=== PATIENT | female | born 1945 | race Caucasian/White ===

== ENCOUNTER 2022-12-23 08:46 | Day surgery (SDC) | payer MEDICARE, OTHER ==
[~2022-12-23] VITALS: Ht 154.9 cm; Wt 87.7 kg
[~2022-12-23 08:46] MED LIST: DIAZ5 PO; OXYACE5T PO
[2022-12-23] MEDS ORDERED: NAPROXEN500 MG PO (09:20)
[2022-12-23] MEDS ORDERED: ANORO ELLIPTA1 EAC1 INH (09:20)
[2022-12-23] MEDS ORDERED: Ventolin/Prove6.7 GM INH (09:20)
[2022-12-23] MEDS ORDERED: LISINOPRIL-HCT1 EAC1 PO (09:29)
[2022-12-23] MEDS ORDERED: TEMA30 (09:29)
[2022-12-23] MEDS ORDERED: ALPRAZOLAM110 (09:29)
--- NOTE | 2022-12-23 10:01 | NUR ---
12/23/22 1001 Beth [place] GIVEN PRE-OP PER VERBAL ORDER FROM DR ROSA
[2022-12-23 10:24] VITALS: BP 155/78
--- NOTE | 2022-12-23 10:33 | NUR ---
12/23/22 1033 Blaze Costa IV REMOVED INTACT. SITE WNL.
== END 2022-12-23 10:41 | disposition home or self-care (01) ==
LOC: ORSCSDS 08:46
PROVIDERS: Student in an Organized Health Care Education/Training Program
PROC: 08DK3ZZ Extraction of Left Lens, Percutaneous Approach (ICD-10-PCS; principal; 2022-12-23 10:00)
DX: H25.13 Age-related nuclear cataract, bilateral (principal); I10 Essential (primary) hypertension; E66.9 Obesity, unspecified; Z68.36 Body mass index [BMI] 36.0-36.9, adult; Z87.891 Personal history of nicotine dependence; Z79.899 Other long term (current) drug therapy
CPT/HCPCS: J2250; J3010; J7040; V2632

== ENCOUNTER 2024-05-16 17:01 | Inpatient (IN) | payer MEDICARE, OTHER ==
[~2024-05-16] VITALS: Ht 152.4 cm; Wt 81.2 kg
[~2024-05-16 17:01] MED LIST changes: +ALBU90OI INH; +ALPRAZOLAM110 PO; +ANORO ELLIPTA1 EAC1 INH; +LISINOPRIL-HCT1 EAC1 PO; +NAPROXEN500 MG PO; +TEMA30 PO
[2024-05-16 18:22] LABS: BASOPHILS ABSOLUTE AUTO 0.05 K/mm3 (0.00-0.23); BASOPHILS PERCENT AUTO 0 % (0-2); EOSINOPHILS ABSOLUTE AUTO 1.84 K/mm3 (0.00-0.68); EOSINOPHILS PERCENT AUTO 11 % (0-6); Hematocrit 46.4 % (33.0-51.0); Hemoglobin 14.2 g/dL (11.5-16.0); IMMATURE GRAN PERCENT AUTO 1 % (0-1); LYMPHOCYTES ABSOLUTE AUTO 0.72 K/mm3 (0.84-5.20); LYMPHOCYTES PERCENT AUTO 4 % (21-46); MONOCYTES ABSOLUTE AUTO 0.71 K/mm3 (0.16-1.47); MONOCYTES PERCENT AUTO 4 % (4-13); Mean Corpuscular HGB 28.4 pg (26.0-34.0); Mean Corpuscular HGB Conc 30.6 g/dL (31.5-36.5); Mean Corpuscular Volume 93 fL (80-100); Mean Platelet Volume 9.7 fL (9.1-12.4); NEUTROPHILS ABSOLUTE AUTO 13.34 K/mm3 (1.96-9.15); NEUTROPHILS PERCENT AUTO 80 % (41-73); Platelet Count 277 K/mm3 (150-400); RDW Coefficient Variation 14.6 % (11.7-14.2); RDW Standard Deviation 49.7 fL (35.1-46.3); White Blood Cell Count 16.76 K/mm3 (4.00-11.30)
[2024-05-16 18:52] LABS: Albumin, Blood 3.3 g/dL (3.4-5.0); Albumin/Globulin Ratio 0.8 (0.8-1.8); Bilirubin, Total 0.8 mg/dL (0.1-1.0); Bun/Creatinine Ratio 16.4 (12.0-20.0); Calcium, Blood 7.8 mg/dL (8.5-10.1); Creatinine, Blood 2.14 mg/dL (0.40-1.00); Globulin, Blood 4.3 g/dL (2.2-4.0); Potassium, Blood 5.7 mmol/L (3.5-5.5); Total Protein, Blood 7.6 g/dL (6.4-8.2)
[2024-05-16] MEDS ORDERED: Aspirin 81 MG Chew PO ONE (22:25)
[2024-05-16] MEDS ORDERED: Ondansetron HCl 2 MG / ML 2ML Vial IV PRN (23:35)
[2024-05-16] MEDS ORDERED: FLU VACC TS2024-25(6MOS UP)/PF 45 MCG/0.5 ML SYRINGE IM ONE (23:35)
[2024-05-16] MEDS ORDERED: NS 1,000 ML IV ONE (23:35)
[2024-05-17] MEDS ORDERED: Clopidogrel Bisulfate 75 MG Tab PO SCH
[2024-05-17] MEDS ORDERED: Insulin Glargine-Yfgn 100 Unit/mL 3 ML SYR SC SCH
[2024-05-17] MEDS ORDERED: Enoxaparin 40 MG/0.4 ML SYR SC SCH
[2024-05-17] MEDS ORDERED: Atorvastatin 40 MG Tab PO SCH
[2024-05-17] MEDS ORDERED: Enoxaparin 30 MG/0.3 ML SYR SC SCH (00:01)
[2024-05-17] MEDS ORDERED: Methocarbamol750 MG PO (00:17)
[2024-05-17 01:00] VITALS: BP 231/91
[2024-05-17] MEDS ORDERED: HydrALAZINE HCl 20 MG / ML 1ML Vial IV ONE (02:05)
[2024-05-17] MEDS ORDERED: ALPRAZolam 0.5 MG Tab PO PRN (02:05)
[2024-05-17] MEDS ORDERED: Temazepam 15 MG Cap PO SCH (02:10)
[2024-05-17] MEDS ORDERED: Albuterol HFA200 ACT/6.7 GM INH INH PRN (02:10)
[2024-05-17] MEDS ORDERED: Ipratropium/Albuterol SulF 2.5-0.5MG/3 ML Amp INH PRN (02:25)
[2024-05-17 03:19] VITALS: BP 156/90
[2024-05-17 04:07] LABS: Source, Urine Clean Catch
[2024-05-17 04:09] LABS: Bilirubin, Urine Neg (Neg); Blood, Urine 1+ (Neg); Glucose Qualitative, Urine Neg (Neg); Ketones, Urine Neg (Neg); Leukocyte Esterase, Urine 2+ (Neg); Nitrite, Urine Neg (Neg); Protein, Urine 2+ (Neg); Specific Gravity, Urine 1.005 (1.003-1.022); Urobilinogen, Urine NORM (Normal)
--- NOTE | 2024-05-17 04:17 | NUR ---
0100 PT ARRIVED TO ROOM FROM ER IN STABLE CONDITION. PT REPORTS SOB THAT INCREASES WITH EXERTION, ON 2L NC O2 AT 91%. BP ELEVATED AT 231/91, WILL CALL DR TO GET MEDS. BS WAS 158. PVR BLADDER SCAN WAS 32 ML.TELE NSR AT 78. NO OTHER APPARENT SIGNS OF DISTRESS. CALL LIGHT IS IN REACH. BED ALARM IS ON.
--- NOTE | 2024-05-17 04:20 | NUR ---
0319 GAVE PT HYDRALAZINE AT 0238, PT'S BP IS NOW 156/90. PT LYING IN BED, AWAKE, NO APPARENT SIGNS OF DISTRESS. CALL LIGHT IS IN REACH. BED ALARM IS ON.
[2024-05-17 04:22] LABS: Appearance, Urine Clear (Clear); Bacteria Mod /hpf; Color, Urine Pale Yellow (P-Yellow); Red Blood Cells, Urine 0-2 /hpf (0-2); Squamous Epithelial Cells Rare /hpf (Few)
--- NOTE | 2024-05-17 04:24 | NUR ---
PT IS AAO X 4, ON 2L NC. SOB THAT INCREASES WITH EXERTION. BP WAS ELEVATED ON ARRIVAL TO FLOOR AT 231/91, GOT HYDRALAZINE X 1, CAME DOWN TO 156/90. TELE NSR TO ST 95-100. BS WAS 158. PVR BLADDER SCAN WAS 32.
[2024-05-17 04:53] LABS: BASOPHILS ABSOLUTE AUTO 0.06 K/mm3 (0.00-0.23); BASOPHILS PERCENT AUTO 0 % (0-2); EOSINOPHILS ABSOLUTE AUTO 3.48 K/mm3 (0.00-0.68); EOSINOPHILS PERCENT AUTO 25 % (0-6); Hematocrit 42.6 % (33.0-51.0); Hemoglobin 13.4 g/dL (11.5-16.0); IMMATURE GRAN ABSOLUTE AUTO 0.07 K/mm3 (0.00-0.10); IMMATURE GRAN PERCENT AUTO 1 % (0-1); LYMPHOCYTES PERCENT AUTO 14 % (21-46); MONOCYTES ABSOLUTE AUTO 0.66 K/mm3 (0.16-1.47); MONOCYTES PERCENT AUTO 5 % (4-13); Mean Corpuscular HGB 28.5 pg (26.0-34.0); Mean Corpuscular HGB Conc 31.5 g/dL (31.5-36.5); Mean Corpuscular Volume 90 fL (80-100); Mean Platelet Volume 9.4 fL (9.1-12.4); NEUTROPHILS ABSOLUTE AUTO 7.87 K/mm3 (1.96-9.15); NEUTROPHILS PERCENT AUTO 56 % (41-73); Platelet Count 281 K/mm3 (150-400); RDW Coefficient Variation 14.5 % (11.7-14.2); RDW Standard Deviation 48.8 fL (35.1-46.3); Red Blood Cell Count 4.71 M/mm3 (3.80-5.20); White Blood Cell Count 14.04 K/mm3 (4.00-11.30)
[2024-05-17 05:22] LABS: Albumin/Globulin Ratio 0.8 (0.8-1.8); Bilirubin, Total 0.6 mg/dL (0.1-1.0); Bun/Creatinine Ratio 15.4 (12.0-20.0); Calcium, Blood 7.9 mg/dL (8.5-10.1); Creatinine, Blood 2.01 mg/dL (0.40-1.00); Globulin, Blood 3.8 g/dL (2.2-4.0); Potassium, Blood 4.4 mmol/L (3.5-5.5); Total Protein, Blood 6.8 g/dL (6.4-8.2)
[2024-05-17] MEDS ORDERED: FentaNYL Citrate 50 MCG/ML 2 ML Injection IV PRN (06:15)
[2024-05-17] MEDS ORDERED: TRELEGY ELLIPT1 EACH INH (06:53)
[2024-05-17 07:26] VITALS: BP 161/97
[2024-05-17] MEDS ORDERED: Insulin Human Lispro 100 Units/ML 3ML Syringe SC SCH (07:30)
[2024-05-17] MEDS ORDERED: Tiotropium Bromide 2.5 MCG/ACT MIST INHAL (10 ACT/4 GM) INH SCH (07:50)
[2024-05-17] MEDS ORDERED: Mometasone/Formoterol MDI 100/5 mcg 13 GM INH SCH (07:50)
[2024-05-17] MEDS ORDERED: Aspirin 81 MG Chew PO SCH (09:00)
[2024-05-17] MEDS ORDERED: HydrALAZINE HCl 25 MG Tab PO SCH (09:00)
[2024-05-17 15:11] VITALS: BP 161/67
--- NOTE | 2024-05-17 16:36 | NUR ---
SHIFT SUMMARY; PER PATIENT IS POSITIVE FOR ISHEMIC STROKE ABOUT 5CM. SHE STILL HAS BLURRY VISION. DENIES ANY CP OR PRESSURE. DOES SAY HAS A MILD HEADACHE. ORDER FOR CT WITH CONTRAST NOT DONE OF THIS WRITING. PATIENT HAS GOOD IV 20GAUGE LEFT WRIST. VERIFIED WITH CHEESE SPECIALIST MARCELA THEY CAN USE IT FOR CONTRAST. VITAL SIGNS SHOW SHE IS HYPERTENSIVE THROUGHOUT DAY. PO HYDRALAZINE ADMIN ORDERED WITH MINIMAL RESULTS. SHE IS AO X 4. REMAINS ON 2 LITERS O2 FOR COMFORT. PER PATIENT SHE HAS AN EMIGEN CONCENTRATOR AT HOME THAT SHE USES FOR SOB NEEDED. PATIENT LIVES ALONE AND SAYS SHE DOES HAVE FRIENDS SHE CAN COUNT ON TO COME ASSIST HER WHEN SHE IS DISCHARGED. WILL REMAIN AVAILABLE FOR THIS PATIENT FOR ANY WANTS OR NEEDS THAT COME UP PRIOR TO REPORT AND HAND OFF TO NOC SHIFT RN.
[2024-05-17 19:35] VITALS: BP 199/80
[2024-05-18 04:11] VITALS: BP 184/99
[2024-05-18 04:53] LABS: Hematocrit 44.5 % (33.0-51.0); Hemoglobin 13.8 g/dL (11.5-16.0); Mean Corpuscular HGB 28.4 pg (26.0-34.0); Mean Corpuscular Volume 92 fL (80-100); Mean Platelet Volume 9.7 fL (9.1-12.4); Platelet Count 322 K/mm3 (150-400); RDW Coefficient Variation 14.6 % (11.7-14.2); RDW Standard Deviation 49.7 fL (35.1-46.3); Red Blood Cell Count 4.86 M/mm3 (3.80-5.20); White Blood Cell Count 14.44 K/mm3 (4.00-11.30)
[2024-05-18 05:24] LABS: Anion Gap 11 mmol/L (3-11); Blood Urea Nitrogen 29 mg/dL (8-24); Bun/Creatinine Ratio 14.4 (12.0-20.0); CHOL/HDL RATIO 3.1; CO2, Blood 22 mmol/L (21-32); Calcium, Blood 8.6 mg/dL (8.5-10.1); Chloride, Blood 112 mmol/L (98-108); Cholesterol 148 mg/dL (50-200); Creatinine, Blood 2.02 mg/dL (0.40-1.00); Glomerular Filtration Rate 24 (60-); Glucose, Blood 139 mg/dL (70-99); HDL Cholesterol 48 mg/dL (>39); LDL/HDL RATIO 1.6; Low Density Lipoprotein Chol 75 mg/dL (0-110); Potassium, Blood 4.9 mmol/L (3.5-5.5); Sodium, Blood 140 mmol/L (136-145); Triglycerides 126 mg/dL (30-160); Very Low Density Lipoprot Chol 25 mg/dL (6-32)
[2024-05-18 07:19] VITALS: BP 216/83
--- NOTE | 2024-05-18 07:40 | NUR ---
SHIFT SUMMARY PATIENT UP TO BR OFTEN TONIGHT. MEDICATED TWICE FOR ANXIETY. VISION IS STILL OFF. TELE SR @ 89 BP ELEVATED AT TIMES.
--- NOTE | 2024-05-18 07:46 | NUR ---
SBP >[address] GUPTA NOTIFIED VIA TELEPHONE AND ORDER TO GIVE SCHEDULED HYDRALAZINE NOW. STATED WILL ORDER PRN FOR BLOOD PRESSURE. WILL CONTINUE TO MONITOR.
[2024-05-18] MEDS ORDERED: AmLODIPine Besylate 5 MG Tab PO SCH (08:00)
[2024-05-18] MEDS ORDERED: Carvedilol 6.25 MG Tab PO SCH (08:00)
[2024-05-18 08:33] VITALS: BP 157/71
[2024-05-18] MEDS ORDERED: Loratadine 10 MG Tab PO SCH (14:00)
[2024-05-18 16:10] VITALS: BP 184/79
[2024-05-18 17:29] VITALS: BP 153/70
--- NOTE | 2024-05-18 18:02 | NUR ---
DISCHARGE NOTE PATIENT A/OX4, ABLE TO MAKE NEEDS KNOWN. PLEASANT AND COOPERATIVE WITH CARE. PATIENT'S LEFT PUPIL NOT REACTIVE TO LIGHT THIS AM, RIGHT PUPIL SLUGGISH. PATIENT COMPLAINING OF SKEWED VISION AND HAVING VISUAL DISTURBANCES. STATES OBJECTS "MOVE AND GET LARGER AND SMALLER". PATIENT BLOOD RPESSURE ELEVATED THIS AM, NOTIFIED AND ORDERED NEW SCHEDULED MEDICATIONS. PIV DRESSING CHANGED. PATIENT HAD A SHOWER AND ALSO PARTICIPATED IN PHYSICAL THERAPY. TELEMETRY IN PLACE, NO EVENTS NOTED. NO OTHER CONCERNS AT THIS TIME, FRIENDS AT BEDSIDE.
[2024-05-18 20:26] VITALS: BP 145/66
[2024-05-19 02:18] VITALS: BP 170/61
[2024-05-19] MEDS ORDERED: Acetaminophen 325 MG TABLET PO PRN (02:35)
--- NOTE | 2024-05-19 04:43 | NUR ---
SHIFT SUMMARY PATIENT FEELS THAT HER EYESIGHT IN BOTH EYES HAS RETURNED. STILL CLUMSY WHEN HANDED THE REMOTE, BUT SEEMS ABLE TO FOCUS BETTER.
[2024-05-19 07:26] VITALS: BP 182/69
[2024-05-19] MEDS ORDERED: Aspirin 81 MG Chew PO SCH (09:00)
[2024-05-19] MEDS ORDERED: Atorvastatin 40 MG Tab PO SCH (09:00)
[2024-05-19] MEDS ORDERED: Clopidogrel Bisulfate 75 MG Tab PO SCH (09:00)
--- NOTE | 2024-05-19 12:47 | NUR ---
THIS MOTION DESIGNER HAS REVIEWED AND AGREES WITH ALL ASSESSMENTS BY CLARKE GARZA.
[2024-05-19 15:17] VITALS: BP 161/80
--- NOTE | 2024-05-19 18:28 | NUR ---
SHIFT SUMMARY: PT AOX4 STILL SOME BLURRY VISION. PT AND OT SAW HER WITH PROMISING RESULTS. PT ABLE TO AMBULATE WITH WALKER NEEDING ONLY MODERATE DIRECTION IN ORDER TO REACH DESTINATION. HAD SOME HEAD ACHE AND BACK PAIN, MEDICATED PER EMR AND ADJUSTED IN BED. PT VERY COOPERATIVE AND EAGER TO LEARN AND GET BETTER. BLOOD SUGARS STABLE INSULIN NOT INDICATED. BLOOD PRESSURE STABLE AND HELD WITH MEDICATIONS PER EMR. PT CURRENTLY SLEEPING IN BED, BED IN LOWEST POSITION, CALL LIGHT IN REACH. CONTINUING CARE.
[2024-05-19 19:42] VITALS: BP 140/62
[2024-05-20 05:01] VITALS: BP 163/64
--- NOTE | 2024-05-20 05:05 | NUR ---
SHIFT SUMMARY PATIENT IS ALERT AND ORIENTED X3. PATIENT HAS HAD NO ACUTE EVENTS THIS SHIFT. VITAL SIGNS REVIEWED. PATIENT HAS HAD NO COMPLAINTS OF PAIN, NAUSEA, SOB OR VOMITTING. PATIENT IS STILL ON 2L NC. BED IN LOCKED AND LOWEST POSITION. CALL LIGHT IN PLACE. WILL MONITOR UNTIL SHIFT CHANGE.
[2024-05-20 07:35] VITALS: BP 179/70
[2024-05-20 10:39] LABS: Influenza A, PCR NEGATIVE (NEGATIVE); Influenza B, PCR NEGATIVE (NEGATIVE); Resp Syncytial Virus, PCR NEGATIVE (NEGATIVE); SARS-Cov-2 (COVID-19) PCR, MMC NEGATIVE (NEGATIVE)
[2024-05-20] MEDS ORDERED: ASPI81CH PO (11:33)
[2024-05-20] MEDS ORDERED: AMLO5 PO (11:33)
[2024-05-20] MEDS ORDERED: ATOR40TA PO (11:34)
[2024-05-20] MEDS ORDERED: CARV6.25 PO (11:34)
[2024-05-20] MEDS ORDERED: CLOP75 PO (11:34)
[2024-05-20] MEDS ORDERED: HYDR10 PO (11:34)
[2024-05-20] MEDS ORDERED: ZYRTEC10 M2 PO (11:35)
[2024-05-20] MEDS ORDERED: SEMGLEE (Y100 UNIT/2 SC (11:35)
[2024-05-20 13:30] VITALS: BP 174/70
--- NOTE | 2024-05-20 14:16 | NUR ---
DISCHARGE SUMMARY PT DC THIS SHIFT TO DUSTIN CLARKE VIA TRANSPORTATION SERVICES. HARD SCRIPT NOTED TO BE INTRANSPORT PACKET. TRIED TO CALL AND GIVE REPORT TO DUSTIN CLARKE X2 THIS SHIFT WITH NO ANSWER. PT LEFT WITH BELONGINGS AND ON 2L/NC.
== END 2024-05-20 14:18 | DRG 65 ==
LOC: ER 17:01 → MEDS 17:02 → ENPENDDIS 05-20 11:48 → MEDS 05-20 14:18
PROVIDERS: Emergency Medicine; Internal Medicine; ADMIT Internal Medicine
DX: I63.9 Cerebral infarction, unspecified (principal); E87.20 Acidosis, unspecified; F11.20 Opioid dependence, uncomplicated; N18.4 Chronic kidney disease, stage 4 (severe); J44.9 Chronic obstructive pulmonary disease, unspecified; I12.9 Hypertensive chronic kidney disease with stage 1 through stage 4 chronic kidney disease, or unspecified chronic kidney disease; J32.9 Chronic sinusitis, unspecified; E11.22 Type 2 diabetes mellitus with diabetic chronic kidney disease; H53.8 Other visual disturbances; E87.5 Hyperkalemia; E11.65 Type 2 diabetes mellitus with hyperglycemia; Z98.49 Cataract extraction status, unspecified eye; Z91.048 Other nonmedicinal substance allergy status; Z79.899 Other long term (current) drug therapy
CPT/HCPCS: 0241U; 36415; 70450; 70496; 70498; 70551; 76770; 80048; 80053; 80061; 81001; 82947; 83036; 85025; 85027; 87077; 87086; 87186; 93005; 93010; 93306; 93880; 94640; 94664; 94760; 96372; 96374; 97110; 97112; 97116; 97162; 97165; 97530; 97535; 99285-25; A9270; G0378; J0360; J1650; J1815; J7030; Q9967

== ENCOUNTER 2024-07-04 17:25 | Emergency (ER) | payer MEDICARE, OTHER ==
[~2024-07-04] VITALS: Ht 152.4 cm; Wt 81.7 kg
[~2024-07-04 17:25] MED LIST changes: +AMLO5 PO; +ASPI81CH PO; +ATOR40TA PO; +CARV6.25 PO; +CLOP75 PO; +HYDR10 PO; +Methocarbamol750 MG PO; +SEMGLEE (Y100 UNIT/2 SC; +TRELEGY ELLIPT1 EACH INH; +ZYRTEC10 M2 PO
[2024-07-04 19:43] LABS: BASOPHILS ABSOLUTE AUTO 0.04 K/mm3 (0.00-0.23); BASOPHILS PERCENT AUTO 0 % (0-2); EOSINOPHILS ABSOLUTE AUTO 0.08 K/mm3 (0.00-0.68); EOSINOPHILS PERCENT AUTO 1 % (0-6); Hemoglobin 12.8 g/dL (11.5-16.0); IMMATURE GRAN ABSOLUTE AUTO 0.04 K/mm3 (0.00-0.10); IMMATURE GRAN PERCENT AUTO 0 % (0-1); LYMPHOCYTES ABSOLUTE AUTO 1.27 K/mm3 (0.84-5.20); LYMPHOCYTES PERCENT AUTO 13 % (21-46); MONOCYTES ABSOLUTE AUTO 0.71 K/mm3 (0.16-1.47); MONOCYTES PERCENT AUTO 7 % (4-13); Mean Corpuscular HGB 28.8 pg (26.0-34.0); Mean Corpuscular HGB Conc 29.8 g/dL (31.5-36.5); Mean Corpuscular Volume 97 fL (80-100); Mean Platelet Volume 9.2 fL (9.1-12.4); NEUTROPHILS ABSOLUTE AUTO 7.98 K/mm3 (1.96-9.15); NEUTROPHILS PERCENT AUTO 79 % (41-73); Platelet Count 264 K/mm3 (150-400); RDW Standard Deviation 52.8 fL (35.1-46.3); Red Blood Cell Count 4.45 M/mm3 (3.80-5.20); White Blood Cell Count 10.12 K/mm3 (4.00-11.30)
[2024-07-04 20:02] LABS: Albumin, Blood 3.1 g/dL (3.4-5.0); Albumin/Globulin Ratio 0.7 (0.8-1.8); Bilirubin, Total 0.6 mg/dL (0.1-1.0); Bun/Creatinine Ratio 13.2 (12.0-20.0); Calcium, Blood 8.7 mg/dL (8.5-10.1); Creatinine, Blood 1.67 mg/dL (0.40-1.00); Globulin, Blood 4.3 g/dL (2.2-4.0); Potassium, Blood 4.8 mmol/L (3.5-5.5); Total Protein, Blood 7.4 g/dL (6.4-8.2)
[2024-07-04 22:30] VITALS: BP 144/80
== END 2024-07-05 23:20 | disposition home or self-care (01) ==
LOC: ER 17:25
PROVIDERS: Physician Assistant
DX: J44.9 Chronic obstructive pulmonary disease, unspecified (principal); R06.89 Other abnormalities of breathing; E11.9 Type 2 diabetes mellitus without complications; I10 Essential (primary) hypertension; Z79.899 Other long term (current) drug therapy; Z79.82 Long term (current) use of aspirin; Z79.4 Long term (current) use of insulin; Z91.09 Other allergy status, other than to drugs and biological substances
CPT/HCPCS: 71046; 80053; 84484; 85025; 93005; 93010; 99285-25

== ENCOUNTER 2024-10-05 05:28 | Inpatient (IN) | payer MEDICARE, OTHER ==
[~2024-10-05] VITALS: Ht 152.4 cm; Wt 76.2 kg
[2024-10-05] MEDS ORDERED: Ondansetron HCl 2 MG / ML 2ML Vial IV ONE (05:45)
[2024-10-05 05:51] LABS: BASOPHILS ABSOLUTE AUTO 0.06 K/mm3 (0.00-0.23); BASOPHILS PERCENT AUTO 1 % (0-2); EOSINOPHILS ABSOLUTE AUTO 0.08 K/mm3 (0.00-0.68); EOSINOPHILS PERCENT AUTO 1 % (0-6); Hematocrit 37.1 % (33.0-51.0); Hemoglobin 11.6 g/dL (11.5-16.0); IMMATURE GRAN ABSOLUTE AUTO 0.01 K/mm3 (0.00-0.10); IMMATURE GRAN PERCENT AUTO 0 % (0-1); LYMPHOCYTES ABSOLUTE AUTO 2.22 K/mm3 (0.84-5.20); LYMPHOCYTES PERCENT AUTO 29 % (21-46); MONOCYTES PERCENT AUTO 5 % (4-13); Mean Corpuscular HGB 29.1 pg (26.0-34.0); Mean Corpuscular HGB Conc 31.3 g/dL (31.5-36.5); Mean Corpuscular Volume 93 fL (80-100); NEUTROPHILS ABSOLUTE AUTO 4.77 K/mm3 (1.96-9.15); NEUTROPHILS PERCENT AUTO 63 % (41-73); Platelet Count 219 K/mm3 (150-400); RDW Coefficient Variation 14.6 % (11.7-14.2); RDW Standard Deviation 50.1 fL (35.1-46.3); Red Blood Cell Count 3.99 M/mm3 (3.80-5.20); White Blood Cell Count 7.54 K/mm3 (4.00-11.30)
[2024-10-05 06:20] LABS: Albumin, Blood 3.2 g/dL (3.4-5.0); Albumin/Globulin Ratio 0.8 (0.8-1.8); Bilirubin, Total 0.4 mg/dL (0.1-1.0); Bun/Creatinine Ratio 17.3 (12.0-20.0); Calcium, Blood 7.5 mg/dL (8.5-10.1); Creatinine, Blood 1.73 mg/dL (0.40-1.00); Globulin, Blood 4.2 g/dL (2.2-4.0); Potassium, Blood 4.4 mmol/L (3.5-5.5); Total Protein, Blood 7.4 g/dL (6.4-8.2)
[2024-10-05 06:53] LABS: Source, Urine Clean Catch
[2024-10-05 07:15] LABS: Appearance, Urine Hazy (Clear); Bilirubin, Urine Neg (Neg); Blood, Urine 2+ (Neg); Color, Urine Yellow (P-Yellow); Glucose Qualitative, Urine Neg (Neg); Ketones, Urine Neg (Neg); Leukocyte Esterase, Urine 1+ (Neg); Nitrite, Urine Neg (Neg); Protein, Urine 3+ (Neg); Urobilinogen, Urine NORM (Normal)
[2024-10-05 07:26] LABS: Ethanol (Alcohol), Blood, Med 246 mg/dL; Salicylate <1.7 mg/dL (2.8-20.0)
[2024-10-05 07:28] LABS: Acetaminophen, Random <2.0 ug/mL (10.0-30.0)
[2024-10-05 07:44] LABS: U Amphetamine Screen Not Detected; U Barbituate Screen Not Detected; U Benzodiazapine Screen DETECTED; U Buprenorphine Screen Not Detected; U Cannabinoids Screen Not Detected; U Cocaine Screen Not Detected; U Methadone Screen Not Detected; U Methamphetamine Screen Not Detected; U Opiates Screen Not Detected; U Oxycodone Screen Not Detected; U Phencyclidine Screen Not Detected
[2024-10-05 09:13] LABS: Bacteria Many /hpf; Squamous Epithelial Cells Many /hpf (Few)
[2024-10-05 09:15] LABS: Hyaline Casts 0-2 /lpf (0-2); Transitional Epithelial Cells Rare /hpf (0-Rare)
[2024-10-05] MEDS ORDERED: HydrALAZINE HCl 20 MG / ML 1ML Vial IV PRN (17:40)
[2024-10-05] MEDS ORDERED: LORazepam 2 MG/ML 1ML Injection IV PRN ×2 (17:40)
[2024-10-05] MEDS ORDERED: Ondansetron HCl 2 MG / ML 2ML Vial IV PRN (17:40)
[2024-10-05] MEDS ORDERED: Acetaminophen 325 MG TABLET PO PRN (17:45)
[2024-10-05] MEDS ORDERED: ChlordiazePOXIDE 25 MG Cap PO PRN ×2 (17:45)
[2024-10-05] MEDS ORDERED: FLU VACC TS2024-25(6MOS UP)/PF 45 MCG/0.5 ML SYRINGE IM ONE (17:45)
[2024-10-05] MEDS ORDERED: Folic Acid 1 MG in NS 50 ML IV SCH (18:00)
[2024-10-05] MEDS ORDERED: Thiamine HCl 100 MG in NS 50 ML IV SCH (18:00)
[2024-10-05] MEDS ORDERED: Albuterol HFA200 ACT/6.7 GM INH INH PRN (19:05)
[2024-10-05] MEDS ORDERED: Mometasone/Formoterol MDI 100/5 mcg 13 GM INH SCH (19:10)
[2024-10-05] MEDS ORDERED: Ipratropium Bromide INH 0.02% 0.5 mg/2.5ML Vial INH SCH ×2 (19:10→23:11)
[2024-10-05 23:11] VITALS: BP 196/87
[2024-10-05 23:28] VITALS: BP 185/59
[2024-10-06] VITALS (8 sets, daily range): BP systolic 136–177; BP diastolic 50–79
[2024-10-06 04:43] LABS: BASOPHILS ABSOLUTE AUTO 0.05 K/mm3 (0.00-0.23); BASOPHILS PERCENT AUTO 1 % (0-2); EOSINOPHILS ABSOLUTE AUTO 0.05 K/mm3 (0.00-0.68); EOSINOPHILS PERCENT AUTO 1 % (0-6); Hematocrit 36.3 % (33.0-51.0); Hemoglobin 11.5 g/dL (11.5-16.0); IMMATURE GRAN ABSOLUTE AUTO 0.03 K/mm3 (0.00-0.10); IMMATURE GRAN PERCENT AUTO 0 % (0-1); LYMPHOCYTES ABSOLUTE AUTO 1.57 K/mm3 (0.84-5.20); LYMPHOCYTES PERCENT AUTO 23 % (21-46); MONOCYTES ABSOLUTE AUTO 0.68 K/mm3 (0.16-1.47); MONOCYTES PERCENT AUTO 10 % (4-13); Mean Corpuscular HGB 28.9 pg (26.0-34.0); Mean Corpuscular HGB Conc 31.7 g/dL (31.5-36.5); Mean Corpuscular Volume 91 fL (80-100); Mean Platelet Volume 8.7 fL (9.1-12.4); NEUTROPHILS ABSOLUTE AUTO 4.46 K/mm3 (1.96-9.15); NEUTROPHILS PERCENT AUTO 65 % (41-73); Platelet Count 197 K/mm3 (150-400); RDW Coefficient Variation 14.6 % (11.7-14.2); RDW Standard Deviation 49.1 fL (35.1-46.3); Red Blood Cell Count 3.98 M/mm3 (3.80-5.20); White Blood Cell Count 6.84 K/mm3 (4.00-11.30)
[2024-10-06 05:05] LABS: Albumin/Globulin Ratio 0.8 (0.8-1.8); Bilirubin, Total 0.6 mg/dL (0.1-1.0); Bun/Creatinine Ratio 20.5 (12.0-20.0); Calcium, Blood 8.1 mg/dL (8.5-10.1); Creatinine, Blood 1.46 mg/dL (0.40-1.00); Globulin, Blood 3.7 g/dL (2.2-4.0); Magnesium, Blood 2.1 mg/dL (1.6-2.4); Potassium, Blood 4.5 mmol/L (3.5-5.5); Total Protein, Blood 6.7 g/dL (6.4-8.2)
--- NOTE | 2024-10-06 05:42 | NUR ---
SHIFT SUMMARY PT DENIED ANY HOMICIDAL OR SUICIDAL IDEATIONS. VERIFIED WITH [facility] HOLD STATUS IS JUST AN A&D HOLD. PT WAS HYPERTENSIVE DESPITE PRN'S. ONE TIME DOSE OF LIBRIUM GIVEN FOR A CIWA OF 8. PT HAD A HEADACHE, TREMORS AND ANXIETY. PT REPORTS WISHES TO GO HOME SOON.
[2024-10-06] MEDS ORDERED: Carvedilol 6.25 MG Tab PO SCH (08:00)
[2024-10-06] MEDS ORDERED: Enoxaparin 30 MG/0.3 ML SYR SC SCH (09:00)
[2024-10-06] MEDS ORDERED: Furosemide 10 MG / ML 2ML Vial IV SCH (09:00)
[2024-10-06] MEDS ORDERED: Atorvastatin 40 MG Tab PO SCH (09:00)
[2024-10-06] MEDS ORDERED: Loratadine 10 MG Tab PO SCH (09:00)
[2024-10-06] MEDS ORDERED: AmLODIPine Besylate 5 MG Tab PO SCH (09:00)
[2024-10-06] MEDS ORDERED: Insulin Glargine-Yfgn 100 Unit/mL 3 ML SYR SC SCH (09:00)
[2024-10-06] MEDS ORDERED: Aspirin 81 MG Chew PO SCH (09:00)
[2024-10-06] MEDS ORDERED: Clopidogrel Bisulfate 75 MG Tab PO SCH (09:00)
[2024-10-06] MEDS ORDERED: Insulin Human Lispro 100 Units/ML 3ML Syringe SC SCH (11:30)
[2024-10-06] MEDS ORDERED: ChlordiazePOXIDE 25 MG Cap PO STA (12:47)
[2024-10-06] MEDS ORDERED: TEMA30 PO (15:46)
[2024-10-06] MEDS ORDERED: ChlordiazePOXIDE 25 MG Cap PO SCH (18:00)
--- NOTE | 2024-10-06 18:36 | NUR ---
SHIFT SUMMARY PT A/OX3-4 AND COOPERATIVE OF CARE. PT ABLE TO EXPRESS NEEDS AND CALLS APPROPIATE. PT CIWA PROTOCOL PER ORDER. MD ORDERED SCHEDULED LIBRIUM, PT ANXIETY BETTER MAINTAINED. PT REQUESTED TO BE DISCHARGED THIS MORNING, DISCUSSION WITH MD AND PT AGREEABLE TO STAY FOR WITHDRAWL MANAGEMENT. PT UPT TO BSC THIS SHIFT, PT UNSTEADY ON HER FEET. PT/OT ORDERED. PUREWICK PUT IN PLACE FOR SAFETY. PT HYPERTENSIVE THIS SHIFT, TREATED PER EMAR PRN.
--- NOTE | 2024-10-06 18:44 | NUR ---
Pt. is awwake in bed and is eating dinner. This check out cashier offered to pray for the Pt. and return tomorrow. The Pt. verbalized agreement. Prayed with Pt. Pt. verbalized gratitude for the spiritual care visit. Will remain available to the Pt.
--- NOTE | 2024-10-06 20:29 | NUR ---
1928- PT [place] 140.
[2024-10-07 04:51] LABS: Bun/Creatinine Ratio 17.1 (12.0-20.0); Calcium, Blood 7.8 mg/dL (8.5-10.1); Creatinine, Blood 1.75 mg/dL (0.40-1.00); Magnesium, Blood 1.8 mg/dL (1.6-2.4)
--- NOTE | 2024-10-07 05:51 | NUR ---
NOC SUMMARY- PT HAS BEEN RESTING QUIETLY FOR MOST OF SHIFT. PT HAS BEEN VOIDING WELL. PT DID HAVE SOME LOOSE STOOLS EARLY THIS AM. PT ALSO HAD A EPISODE OF ANXIETY AND AGITATION. PT TX WITH PRN LIBRIUM WITH RELIEF. PT TOLERATING PO INTAKE. PT REPORTS SHE HAS SLEPT BETTER THIS NIGHT. CALL LIGHT IN REACH.
[2024-10-07 07:55] VITALS: BP 156/57
[2024-10-07] MEDS ORDERED: Furosemide 20 MG Tab PO SCH (09:00)
[2024-10-07 11:24] VITALS: BP 145/53
[2024-10-07] MEDS ORDERED: Amoxicillin/Clavulanate K 500 MG Tab PO SCH (13:59)
[2024-10-07 16:37] VITALS: BP 129/56
--- NOTE | 2024-10-07 17:41 | NUR ---
SHIFT SUMMARY PT A/OX3-4 AND COOPERATIVE OF MOST CARE. PT ABLE TO EXPRESS NEEDS AND HAS BEEN CALLING APPROPIATE. PT REQUESTED TO BE LEFT ALONE FOR MAJORITY OF SHIFT SO SHE COULD SLEEP, CARE CLUSTERED TO ACCOMIDATE PT REQUEST. PT VSS THROUGHOUT SHIFT WITH O2 SATS IN THE 90'S ON 3L NC WHICH IS PT BASELINE. PT ABLE TO AMBULATE TO BSC 1 PER ASSIST, TOLERATE FAIR. PT HAS SOME TREMORS WHEN AMBULATING. PT DENIES CHEST PAIN/PRESSURE. PT DENIES SOB. PT CIWAS RANGED 3-6. PT RECIEVING LIBRIUM Q6 PER ORDER, PT REPORTS IT RELIEVES HER ANXIETY. PT CONTINUES TO REPORT WNATING TO QUIT DRINKING.
[2024-10-07] MEDS ORDERED: Lactobacil 2-S.Thermo-Bifido 1 1 Cap PO SCH (18:00)
[2024-10-07 20:07] VITALS: BP 136/66
[2024-10-08 03:44] VITALS: BP 153/78
[2024-10-08 04:22] LABS: Albumin, Blood 2.6 g/dL (3.4-5.0); Anion Gap 5 mmol/L (3-11); Blood Urea Nitrogen 30 mg/dL (8-24); Bun/Creatinine Ratio 18.1 (12.0-20.0); CO2, Blood 33 mmol/L (21-32); Calcium, Blood 7.4 mg/dL (8.5-10.1); Chloride, Blood 101 mmol/L (98-108); Creatinine, Blood 1.66 mg/dL (0.40-1.00); Glomerular Filtration Rate 31 (60-); Glucose, Blood 151 mg/dL (70-99); Phosphorus, Blood 2.8 mg/dL (2.5-4.9); Potassium, Blood 3.9 mmol/L (3.5-5.5); Sodium, Blood 135 mmol/L (136-145)
--- NOTE | 2024-10-08 05:03 | NUR ---
SHIFT SUMMARY PT A/OX4 T/O SHIFT. VERBALIZES NEEDS, USES CALL LIGHT APPROPRIATELY, COOPERATES WITH CARE. CIWAS 6-9, PT ENDORSES INTERMITTENT HEADACHE, MINIMAL SWEATING, MODERATELY TREMULOUS. BP STABLE, HR 50'S-80'S. PT DENIES CHEST PAIN/PRESSURE. 3+ EDEMA BLE. SINUS RHYTHM. ON 3L NC, SATS ABOVE 90%. PT 1P ASSIST TO BEDSIDE COMMODE. PT ON SCHEDULED LIBRIUM, ALSO REQUESTED ATIVAN FOR ANXIETY THIS MORNING. NO ACUTE EVENTS THIS SHIFT.
[2024-10-08 07:24] VITALS: BP 140/66
[2024-10-08 15:20] VITALS: BP 129/59
--- NOTE | 2024-10-08 15:21 | NUR ---
Shift Summary Pt alert, oriented x4; anxious at times, cooperative with care. Pt up with sba and walker to bathroom. CIWA 5-8 t/o shift, medicated x1 per orders. Pt reports headache, medicate per emar. Pt denies chest pain/pressure, sob, nausea, dizziness and numb/tingling. No tele, bp stable. Spo2 >90% on 3l o2 via nc, baseline. Abd soft, nontender, +bt. Edema to ble. Other vss. No other acute changes noted. Will continue to monitor.
[2024-10-08] MEDS ORDERED: NS 250 ML IV PRN (16:55)
[2024-10-08] MEDS ORDERED: Thiamine HCl 100 MG Tab PO SCH (17:00)
[2024-10-08] MEDS ORDERED: ChlordiazePOXIDE 25 MG Cap PO ONE (17:30)
--- NOTE | 2024-10-08 17:53 | NUR ---
SHIFT SUMMARY PT TRANSFERED FROM PCU 8 TO ROOM 327 THIS SHIFT. 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 PT NOTED TO BE [place] AND DEAF IN RIGHT EAR. PT CONT Q4 HR CIWA AND TREMORS NOTED.
[2024-10-08] MEDS ORDERED: Folic Acid 1 MG TAB PO SCH (18:00)
[2024-10-08 19:30] VITALS: BP 134/52
[2024-10-08] MEDS ORDERED: ChlordiazePOXIDE 25 MG Cap PO SCH (23:30)
[2024-10-09 03:28] VITALS: BP 134/54
--- NOTE | 2024-10-09 06:39 | NUR ---
SHIFT SUMMARY PT A&Ox4 AND PLEASANT. PT C/O BACK PAIN THAT WAS EASED WITH POSITION CHANGE. CIWA's COMPLETED Q4 AND REMAINED UNDER 7. PT ON 3L OF OXYGEN AND SATING >92%. NO ACUTE CHANGES. VSS. BED IN LOWEST POSITION AND CALL LIGHT IN REACH.
[2024-10-09 07:22] VITALS: BP 150/67
[2024-10-09] MEDS ORDERED: Furosemide 20 MG Tab PO SCH (09:00)
--- NOTE | 2024-10-09 17:49 | NUR ---
SHIFT SUMMARY PT CONT LEVEL OF CARE WITH NO ACUTE CHANGES NOTED. PT CONT TO REMAIN A&O X4 AND SBA TO RESTROOM STEADY GAIT NOTED. PT NOTED TO SCORE A 0-2 ON CIWA THIS SHIFT. PT CONT TO RECEIVE SCHEDULED LIBRIUM.
[2024-10-09 19:46] VITALS: BP 134/59
[2024-10-10 04:00] VITALS: BP 129/52
--- NOTE | 2024-10-10 04:24 | NUR ---
MAIL HANDLER EQUIPMENT OPERATOR SUMMARY VSS. 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 DENIED INTENT OF SELF HARM. O2 PER NC AT 3L/MIN. UP WITH ASSIST TO BATHROOM A FEW TIMES. OTHERWISE, HAS BEEN RESTING QUIETLY WITH OCCASIONAL INTERRUPTIONS. CIWAS 0 TO 2. TOLERATING LIBRIUM - SEE MAR FOR DETAILS. TOLERATING HEART HEALTHY DIET. ABLE TO REPOSITION SELF IN BED WITHOUT ASSIST FOR COMFORT. CALL LIGHT IN REACH, RAILS UP X 2 AND BED IN LOW POSITION FOR SAFETY. WILL CONTINUE TO MONITOR
[2024-10-10 07:15] VITALS: BP 158/76
[2024-10-10 07:17] LABS: Bun/Creatinine Ratio 18.4 (12.0-20.0); Calcium, Blood 7.4 mg/dL (8.5-10.1); Creatinine, Blood 1.85 mg/dL (0.40-1.00); Potassium, Blood 4.4 mmol/L (3.5-5.5)
[2024-10-10 11:27] VITALS: BP 148/53
[2024-10-10 14:51] VITALS: BP 146/60
--- NOTE | 2024-10-10 17:39 | NUR ---
SHIFT SUMMARY PT CONT LEVEL OF CARE WITH NO ACUTE CHANGES NOTED.
[2024-10-10 19:09] VITALS: BP 128/58
[2024-10-10 23:15] VITALS: BP 131/69
--- NOTE | 2024-10-11 01:12 | NUR ---
VERBALIZED HEADACHE AND HAVING ANXIETY. IV ATIVAN ADMIN - SEE MAR FOR DETAILS. CALL LIGHT IN REACH
--- NOTE | 2024-10-11 03:27 | NUR ---
CLINICAL SERVICES SPECIALIST SUMMARY VSS. CIWA SCORES LOW, BUT HAVING OCCASIONAL ANXIETY, REQUESTED AND RECEIVED ANXIETY MED X 1.MED EFFECTIVE HAS BEEN RESTING QUIETLY WITH FEW INTERRUPTIONS SINCE. WAS UP TO BR A FEW TIMES WITH ASSIST TO VOID AND HAVE BM. COOPERATIVE. O2 PER NC AT 3L/MIN - BASE. ABLE TO REPOSITION SELF IN BED WITHOUT ASSIST FOR COMFORT. HOB ELEVATED FOR RESP COMFORT. CALL LIGHT IN REACH, RAILS UP X 2 AND BED IN LOW POSITION FOR SAFETY. WILL CONTINUE TO MONITOR
[2024-10-11 03:39] VITALS: BP 142/63
[2024-10-11 05:52] LABS: Bun/Creatinine Ratio 20.2 (12.0-20.0); Calcium, Blood 7.2 mg/dL (8.5-10.1); Creatinine, Blood 1.78 mg/dL (0.40-1.00); Potassium, Blood 4.4 mmol/L (3.5-5.5)
[2024-10-11 07:17] VITALS: BP 144/77
[2024-10-11] MEDS ORDERED: DULERA 100 MCG/13 GM INH (11:53)
[2024-10-11] MEDS ORDERED: MULVITA PO (11:54)
[2024-10-11] MEDS ORDERED: B-1100 M1 PO (11:54)
--- NOTE | 2024-10-11 12:05 | NUR ---
"Spiritual Care | Pt. Request Pt. is resting in bed when she responds to my visit. Pt. is [place] but is pleasant. Facilitated a life review and listened with empathy and interest. Pt. verbalized concerns about how a restraining order against her daughter could be dropped. Without making any commitment to the pt. I shared Pts. concerns with her Service Technician Copier who was well informed on the issue. Prayed with the Pt. Pt. verbalized gratitude for the prayer and the spiritual care visit."
--- NOTE | 2024-10-11 13:18 | NUR ---
DISCHARGE NOTE PT DISCHARGED TO HOME, PICKED UP BY HER NEIGHBOR. IV REMOVED. MEDICATIONS FAXED TO THE PHARMACY OF HER CHOICE. DISCHARGE INFORMATION REVIEWED AND DISCUSSED WITH THE PT. IN-DEPTH EDUCATION PROVIDED ABOUT THE IMPORTANCE OF NOT MIXING ALCOHOL WITH XANAX. THE PT AGREED AND SAID SHE HAD NO PLANS TO DRINK AGAIN. PERSONAL BELONGINGS RETURNED.
--- NOTE | 2024-10-11 14:57 | NUR ---
NOTE: CALLED IN PT'S BP MEDICATIONS TO [facility], DR. ELIDA KNUTSON. PT'S FRIEND, HETAL, WAS CONTACTED AND A MESSAGE WAS LEFT REGARDING THE UPDATED INFORMATION.
--- NOTE | 2024-10-12 17:36 | NUR ---
PT'S NEIGHBOR HETAL CALLED AND ASKED THIS NURSE TO CALL IN ALBUTEROL SCRIPT FOR PATIENT IT WAS MISSED WHEN THE OTHERS WERE CALLED IN AT DISCHARGE ON 10/11/24. THIS NURSE SPOKE WITH DR MARRERO WHO GAVE VERBAL ORDERS FOR THIS NURSE TO CALL IN THAT PRESCRIPTION. HETAL CALLED AT [phone] AND UPDATED.
== END 2024-10-11 13:15 | disposition home or self-care (01) | DRG 897 ==
LOC: ER 05:28 → ERHOLD 05:29 → ER 05:29 → PCU 05:29 → ERHOLD 05:29 → PCU 05:30 → ERHOLD 17:39 → PCU 17:39 → ERHOLD 22:12 → PCU 22:12 → MEDS 10-08 15:45
PROVIDERS: Emergency Medicine; Internal Medicine; Student in an Organized Health Care Education/Training Program; ADMIT Student in an Organized Health Care Education/Training Program
PROC: HZ2ZZZZ Detoxification Services for Substance Abuse Treatment (ICD-10-PCS; principal; 2024-10-05)
DX: F10.239 Alcohol dependence with withdrawal, unspecified (principal); S22.32XA Fracture of one rib, left side, initial encounter for closed fracture; N17.9 Acute kidney failure, unspecified; E87.1 Hypo-osmolality and hyponatremia; F13.20 Sedative, hypnotic or anxiolytic dependence, uncomplicated; J90 Pleural effusion, not elsewhere classified; N39.0 Urinary tract infection, site not specified; Z66 Do not resuscitate; I12.9 Hypertensive chronic kidney disease with stage 1 through stage 4 chronic kidney disease, or unspecified chronic kidney disease; J44.9 Chronic obstructive pulmonary disease, unspecified; E11.22 Type 2 diabetes mellitus with diabetic chronic kidney disease; R29.6 Repeated falls; R91.1 Solitary pulmonary nodule; E66.9 Obesity, unspecified; F10.229 Alcohol dependence with intoxication, unspecified; F17.210 Nicotine dependence, cigarettes, uncomplicated; N18.30 Chronic kidney disease, stage 3 unspecified; Y90.8 Blood alcohol level of 240 mg/100 ml or more; B96.20 Unspecified Escherichia coli [E. coli] as the cause of diseases classified elsewhere; Z68.35 Body mass index [BMI] 35.0-35.9, adult; Z91.048 Other nonmedicinal substance allergy status; Z79.51 Long term (current) use of inhaled steroids; Z79.82 Long term (current) use of aspirin; Z79.899 Other long term (current) drug therapy; Z79.02 Long term (current) use of antithrombotics/antiplatelets; Z79.85 Long-term (current) use of injectable non-insulin antidiabetic drugs; Z86.73 Personal history of transient ischemic attack (TIA), and cerebral infarction without residual deficits; Z98.49 Cataract extraction status, unspecified eye; Z28.21 Immunization not carried out because of patient refusal; W18.39XA Other fall on same level, initial encounter; Y92.019 Unspecified place in single-family (private) house as the place of occurrence of the external cause
CPT/HCPCS: 36415; 70450; 71250; 72125; 74176; 80048; 80053; 80069; 80320; 81001; 81025; 82947; 83036; 83735; 83880; 84100; 85025; 87077; 87086; 87186; 93005; 93010; 94640; 94664; 94760; 94762; 97116; 97161; 97165; 97535; 99285-25; A9270; G0378; G0480; J0360; J1650; J1815; J1940; J2060; J3411; L0160

== ENCOUNTER 2024-11-04 10:16 | Emergency (ER) | payer MEDICARE, OTHER ==
[~2024-11-04] VITALS: Ht 165.1 cm; Wt 81.7 kg
[~2024-11-04 10:16] MED LIST changes: +B-1100 M1 PO; +DULERA 100 MCG/13 GM INH; +MULVITA PO
[2024-11-04] MEDS ORDERED: Ipratropium/Albuterol SulF 2.5-0.5MG/3 ML Amp INH ONE (10:45)
[2024-11-04] MEDS ORDERED: MethylPREDNISolone Sod Succ 125 MG Vial IV ONE (10:45)
[2024-11-04 11:07] LABS: BASOPHILS ABSOLUTE AUTO 0.06 K/mm3 (0.00-0.23); BASOPHILS PERCENT AUTO 1 % (0-2); EOSINOPHILS ABSOLUTE AUTO 0.16 K/mm3 (0.00-0.68); EOSINOPHILS PERCENT AUTO 2 % (0-6); Hematocrit 36.9 % (33.0-51.0); Hemoglobin 11.2 g/dL (11.5-16.0); IMMATURE GRAN ABSOLUTE AUTO 0.01 K/mm3 (0.00-0.10); IMMATURE GRAN PERCENT AUTO 0 % (0-1); LYMPHOCYTES ABSOLUTE AUTO 1.49 K/mm3 (0.84-5.20); LYMPHOCYTES PERCENT AUTO 22 % (21-46); MONOCYTES ABSOLUTE AUTO 0.52 K/mm3 (0.16-1.47); MONOCYTES PERCENT AUTO 8 % (4-13); Mean Corpuscular HGB Conc 30.4 g/dL (31.5-36.5); Mean Corpuscular Volume 96 fL (80-100); Mean Platelet Volume 9.4 fL (9.1-12.4); NEUTROPHILS ABSOLUTE AUTO 4.52 K/mm3 (1.96-9.15); NEUTROPHILS PERCENT AUTO 67 % (41-73); Platelet Count 212 K/mm3 (150-400); RDW Coefficient Variation 13.5 % (11.7-14.2); Red Blood Cell Count 3.86 M/mm3 (3.80-5.20); White Blood Cell Count 6.76 K/mm3 (4.00-11.30)
[2024-11-04 11:32] LABS: Albumin, Blood 3.3 g/dL (3.4-5.0); Albumin/Globulin Ratio 0.9 (0.8-1.8); Bilirubin, Total 0.2 mg/dL (0.1-1.0); Calcium, Blood 8.3 mg/dL (8.5-10.1); Creatinine, Blood 1.59 mg/dL (0.40-1.00); Globulin, Blood 3.6 g/dL (2.2-4.0); Total Protein, Blood 6.9 g/dL (6.4-8.2)
[2024-11-04 15:00] VITALS: BP 171/59
[2024-11-04] MEDS ORDERED: RX Prepack Albuterol 1 PREPACK/6.7 GM INH UD ONE (15:30)
[2024-11-04] MEDS ORDERED: Albuterol HFA200 ACT/6.7 GM INH INH ONE (15:30)
== END 2024-11-04 15:50 | disposition home or self-care (01) ==
LOC: ER 10:16
PROVIDERS: Student in an Organized Health Care Education/Training Program
DX: R06.02 Shortness of breath (principal); J44.9 Chronic obstructive pulmonary disease, unspecified; Z91.048 Other nonmedicinal substance allergy status; Z79.82 Long term (current) use of aspirin; Z79.899 Other long term (current) drug therapy; Z79.2 Long term (current) use of antibiotics; E11.22 Type 2 diabetes mellitus with diabetic chronic kidney disease; N18.30 Chronic kidney disease, stage 3 unspecified; I12.9 Hypertensive chronic kidney disease with stage 1 through stage 4 chronic kidney disease, or unspecified chronic kidney disease; E78.5 Hyperlipidemia, unspecified
CPT/HCPCS: 71046; 80053; 83880; 84484; 85025; 85379; 93005; 93010; 94640; 94664; 96374; 99285-25; A9270; J2919

== ENCOUNTER 2025-05-13 17:48 | Inpatient (IN) | payer MEDICARE, OTHER ==
[~2025-05-13] VITALS: Ht 152.4 cm; Wt 64.3 kg
[2025-05-13] MEDS ORDERED: Morphine Sulfate 4 MG/1 ML Injection IV ONE (18:05)
[2025-05-13] MEDS ORDERED: DIAZ5 PO (18:08)
[2025-05-13] MEDS ORDERED: HYDCHL25 PO (18:09)
[2025-05-13] MEDS ORDERED: LOSA25 PO (18:10)
[2025-05-13 18:15] LABS: BASOPHILS ABSOLUTE AUTO 0.03 K/mm3 (0.00-0.23); BASOPHILS PERCENT AUTO 0 % (0-2); EOSINOPHILS ABSOLUTE AUTO 0.21 K/mm3 (0.00-0.68); EOSINOPHILS PERCENT AUTO 2 % (0-6); Hematocrit 40.6 % (33.0-51.0); Hemoglobin 13.1 g/dL (11.5-16.0); IMMATURE GRAN ABSOLUTE AUTO 0.02 K/mm3 (0.00-0.10); IMMATURE GRAN PERCENT AUTO 0 % (0-1); LYMPHOCYTES ABSOLUTE AUTO 2.86 K/mm3 (0.84-5.20); LYMPHOCYTES PERCENT AUTO 29 % (21-46); MONOCYTES ABSOLUTE AUTO 0.80 K/mm3 (0.16-1.47); MONOCYTES PERCENT AUTO 8 % (4-13); Mean Corpuscular HGB Conc 32.3 g/dL (31.5-36.5); Mean Corpuscular Volume 89 fL (80-100); NEUTROPHILS ABSOLUTE AUTO 6.07 K/mm3 (1.96-9.15); NEUTROPHILS PERCENT AUTO 61 % (41-73); NRBC ABSOLUTE 0.00 K/mm3 (0.00-0.02); NRBC Auto 0.0 /100 WBC (0.0-0.2); Platelet Count 332 K/mm3 (150-400); RDW Coefficient Variation 13.8 % (11.7-14.2); RDW Standard Deviation 44.8 fL (35.1-46.3)
[2025-05-13] MEDS ORDERED: HYDROmorphone HCl/Pf 1MG SYR IV ONE (19:10)
[2025-05-13 19:14] LABS: Alanine Aminotransfer (ALT/SGP 20.0 U/L (12-78); Albumin, Blood 3.6 g/dL (3.4-5.0); Albumin/Globulin Ratio 1.1 (0.8-1.8); Anion Gap 8.0 mmol/L (3-11); Aspartate Aminotrans (AST/SGOT 19.0 U/L (12-37); Bilirubin, Total 0.5 mg/dL (0.1-1.0); Blood Urea Nitrogen 37.0 mg/dL (8-24); CO2, Blood 27.0 mmol/L (21-32); Calcium, Blood 8.8 mg/dL (8.5-10.1); Chloride, Blood 106.0 mmol/L (98-108); Creatinine, Blood 2.02 mg/dL (0.40-1.00); Globulin, Blood 3.4 g/dL (2.2-4.0); Glucose, Blood 126.0 mg/dL (70-99); Potassium, Blood 3.9 mmol/L (3.5-5.5); Sodium, Blood 137.0 mmol/L (136-145); Total Protein, Blood 7.0 g/dL (6.4-8.2)
[2025-05-13] MEDS ORDERED: Ipratropium/Albuterol SulF 2.5-0.5MG/3 ML Amp INH ONE (19:30)
[2025-05-13 20:11] LABS: Source, Urine Straight Cath
[2025-05-13 20:16] LABS: Bilirubin, Urine Neg (Neg); Color, Urine Yellow (P-Yellow); Glucose Qualitative, Urine Neg (Neg); Ketones, Urine Neg (Neg); Leukocyte Esterase, Urine 3+ (Neg); Protein, Urine 3+ (Neg); Specific Gravity, Urine 1.025 (1.003-1.022); Urobilinogen, Urine NORM (Normal)
[2025-05-13] MEDS ORDERED: Ondansetron HCl 2 MG / ML 2ML Vial IV ONE (20:30)
[2025-05-13] MEDS ORDERED: HydrALAZINE HCl 20 MG / ML 1ML Vial IV ONE (20:30)
[2025-05-13 21:13] LABS: White Blood Cells, Urine TNTC /hpf (0-5)
[2025-05-13] MEDS ORDERED: CefTRIAXone Sodium 1,000 MG in NS 100 ML IV ONE (22:45)
[2025-05-13 23:09] LABS: U Cannabinoids Screen DETECTED; U Opiates Screen DETECTED
[2025-05-13 23:10] LABS: U Amphetamine Screen Not Detected; U Barbiturate Screen Not Detected; U Benzodiazapine Screen DETECTED; U Buprenorphine Screen Not Detected; U Cocaine Screen Not Detected; U Methadone Screen Not Detected; U Methamphetamine Screen Not Detected; U Oxycodone Screen Not Detected; U Phencyclidine Screen Not Detected
[2025-05-13] MEDS ORDERED: HydrALAZINE HCl 20 MG / ML 1ML Vial IV PRN (23:15)
[2025-05-13] MEDS ORDERED: FLU VACC TS2025-26(6MOS UP)/PF 45 MCG/0.5 ML SYRINGE IM SCH (23:25)
[2025-05-14] VITALS (8 sets, daily range): BP systolic 112–219; BP diastolic 54–114
[2025-05-14] MEDS ORDERED: [UNRECOGNIZED DRUG - OTHER] PO ×2 (01:10)
[2025-05-14 01:21] LABS: BASOPHILS ABSOLUTE AUTO 0.04 K/mm3 (0.00-0.23); BASOPHILS PERCENT AUTO 1 % (0-2); EOSINOPHILS ABSOLUTE AUTO 0.02 K/mm3 (0.00-0.68); EOSINOPHILS PERCENT AUTO 0 % (0-6); Hematocrit 41.7 % (33.0-51.0); Hemoglobin 13.7 g/dL (11.5-16.0); IMMATURE GRAN ABSOLUTE AUTO 0.02 K/mm3 (0.00-0.10); IMMATURE GRAN PERCENT AUTO 0 % (0-1); LYMPHOCYTES ABSOLUTE AUTO 0.91 K/mm3 (0.84-5.20); LYMPHOCYTES PERCENT AUTO 10 % (21-46); MONOCYTES ABSOLUTE AUTO 0.45 K/mm3 (0.16-1.47); MONOCYTES PERCENT AUTO 5 % (4-13); Mean Corpuscular HGB Conc 32.9 g/dL (31.5-36.5); Mean Corpuscular Volume 90 fL (80-100); NEUTROPHILS ABSOLUTE AUTO 7.42 K/mm3 (1.96-9.15); NEUTROPHILS PERCENT AUTO 84 % (41-73); NRBC ABSOLUTE 0.00 K/mm3 (0.00-0.02); NRBC Auto 0.0 /100 WBC (0.0-0.2); Platelet Count 255 K/mm3 (150-400); RDW Coefficient Variation 13.7 % (11.7-14.2); RDW Standard Deviation 44.6 fL (35.1-46.3)
[2025-05-14 01:43] LABS: Alanine Aminotransfer (ALT/SGP 19.0 U/L (12-78); Albumin, Blood 3.6 g/dL (3.4-5.0); Albumin/Globulin Ratio 1.0 (0.8-1.8); Anion Gap 10.0 mmol/L (3-11); Aspartate Aminotrans (AST/SGOT 16.0 U/L (12-37); Bilirubin, Total 0.4 mg/dL (0.1-1.0); Blood Urea Nitrogen 36.0 mg/dL (8-24); CO2, Blood 26.0 mmol/L (21-32); Calcium, Blood 8.8 mg/dL (8.5-10.1); Chloride, Blood 104.0 mmol/L (98-108); Creatinine, Blood 1.84 mg/dL (0.40-1.00); Globulin, Blood 3.6 g/dL (2.2-4.0); Glucose, Blood 182.0 mg/dL (70-99); Potassium, Blood 3.7 mmol/L (3.5-5.5); Sodium, Blood 136.0 mmol/L (136-145); Total Protein, Blood 7.2 g/dL (6.4-8.2)
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
[2025-05-14] MEDS ORDERED: Enoxaparin 30 MG/0.3 ML SYR SC SCH (09:00)
[2025-05-14] MEDS ORDERED: Albuterol HFA200 ACT/6.7 GM INH INH PRN (09:40)
[2025-05-14] MEDS ORDERED: Formoterol/Mometasone MDI 5/200 mcg 13 GM INH SCH (11:10)
[2025-05-14] MEDS ORDERED: Prenatal Vit/FE Fumarate/FA 1 Tab PO SCH (11:16)
[2025-05-14] MEDS ORDERED: Ipratropium Bromide INH 0.02% 0.5 mg/2.5ML Vial INH SCH (12:00)
[2025-05-14] MEDS ORDERED: Tiotropium Bromide 2.5 MCG/ACT MIST INHAL (10 ACT/4 GM) INH SCH (13:55)
--- NOTE | 2025-05-14 16:53 | NUR ---
shift summary NO ACUTE CHANGES THIS SHIFT. PT A&OX4. SP02>90% ON 2L NC, BASELINE FOR PT. C/O OF SOB W/ EXERTION, BREATHING TX GIVEN THIS AM. TELEMETRY SHOWS NSR, HR 70'S. UP TO BATHROOM SBA W/ FWW TO HAVE BM. PURWIK TO SUCTION D/T INCONTINECE. UP TO SHOWER WITH ASSISTANCE THIS AM. C/O OF R FLANK PAIN, MEDICATED W/ TYLENOL PER EMAR W/ RELIEF. C/O OF ANXIETY THIS AFTERNOON. CALL PLACED TO MD MARRERO. MD MARRERO W/ ORDERS FOR ONE TIME XANAX, SEE EMAR. PT STATES SHE DOES NOT WNAT TO GO HOME. PT STATES, "I HAVE A HOUSE, THEY CAN HAVE IT, I HAVE NO ONE TO LEAVE IT TO" IN REGARDS TO AN ASSISTED LIVING FACILITY. WORKED W/ PT AND OT. UP TO RECLINER MOST OF AFTERNOON. CURRENTLY RESTING PEACEFULLY IN BED. CALL LIGHT IN REACH.
[2025-05-14] MEDS ORDERED: CefTRIAXone Sodium 1,000 MG in NS 100 ML IV SCH (21:00)
[2025-05-15] VITALS (9 sets, daily range): BP systolic 147–189; BP diastolic 56–76
[2025-05-15 04:13] LABS: Anion Gap 8.0 mmol/L (3-11); Blood Urea Nitrogen 39.0 mg/dL (8-24); CO2, Blood 26.0 mmol/L (21-32); Calcium, Blood 8.4 mg/dL (8.5-10.1); Chloride, Blood 105.0 mmol/L (98-108); Creatinine, Blood 1.89 mg/dL (0.40-1.00); Glucose, Blood 138.0 mg/dL (70-99); Potassium, Blood 4.4 mmol/L (3.5-5.5); Sodium, Blood 135.0 mmol/L (136-145)
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
[2025-05-15] MEDS ORDERED: Ondansetron HCl 2 MG / ML 2ML Vial IV PRN (08:10)
[2025-05-15] MEDS ORDERED: Lactobacil 2-S.Thermo-Bifido 1 1 Cap PO SCH (09:00)
--- NOTE | 2025-05-15 11:13 | NUR ---
MORNING SUMMARY THE PT IS A&OX4, VERY [place] IN RIGHT EAR. THE PT IS A 1P ASSIST AND IS UNSTEADY ON HER FEET. SHE IS A HIGH FALL RISK BUT REFUSES TO WEAR A YELLOW GOWN. DISCUSSED WITH PCT'S ON THE PT'S CASE. THE PT HAS BEEN HAVING A HEADACHE, BACK ACHE, RIGHT FLANK TENDERNESS, AND NEW N/T IN BILATERAL FEET. DR. MARRERO AWARE AND TYLENOL GIVEN PER EMAR. THE PT WAS EATING BREAKFAST THIS MORNING AND THEN STARTED DRY HEAVING. NEW ONSET NAUSEA. THIS RN CALLED DR. MARRERO THIS MORNING AND ZOFRAN WAS ORDERED/GIVEN. DURING THE NAUSEA THE PT WAS HAVING SOB ON HER 2L NC. SP02 >93%. AFTER THE NAUSEA RESOLVED SO DID THE PT'S SOB. DR. MARRERO MADE AWARE. ON TELE THE PT HAS BEEN SR 70'S-90'S. BP STABLE. THE PT IS A CONFIDENTIAL PATIENT. THIS RN MADE SURE TO DISCUSS THIS WITH STEWARDESS SUPERVISOR, BREAK RN, STAFF WHO MAY ANSWER THE PHONE AT THE DESK, AND THE PT'S PLANT PULLER. THE PT IS REQUESTING TALKING TO SOMEONE ABOUT HOME SAFETY CONCERNS. THIS WAS DISCUSSED WITH THE STEWARDESS SUPERVISOR. SEE NOTE FOR UPDATES.
[2025-05-15] MEDS ORDERED: Polyethylene Glycol 3350 17 gm PO SCH (14:00)
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
--- NOTE | 2025-05-15 17:21 | NUR ---
END OF SHIFT UPDATES (SEE PREVIOUS NOTES) ONE HOUR POST 0.25MG XANAX, PT'S ANXIETY AND BLOOD PRESSURE HAVE SHOWN IMPROVEMENT. THE PT REMAINS ON 1L NC TO MAINTAIN SP02 >93% (BASELINE 2LNC). ON RA SHE DESATURATED TO 79-81%. THE PT IS GOING TO BE TRANSFERING TO ROOM 347. SEE NOTES FOR UPDATES.
--- NOTE | 2025-05-15 17:48 | NUR ---
REPORT GIVEN THE SERA Scott RN. PT TRANSFERING TO ROOM 343. NO FURTHER NOTES FROM THIS RN
--- NOTE | 2025-05-15 20:02 | NUR ---
SHIFT SUMMARY THIS RN GOT REPORT FROM APPLICATOR SPRAYER. PT A&OX4. PT TRANSFERRED TO FLOOR AT 1730. PT TRANSFERRED SELF FROM WHEELCHAIR TO BED IN ROOM. PT ADMITTED DUE TO PYELONEPHRITIS. AWAITING URINE CULTURES FOR DISCHARGE. PT ORIENTED TO UNIT/FALL PRECAUTIONS/CALL LIGHT. PT UMKUMIUT. NO SKIN CONCERNS NOTED. DYEING MACHINE TENDER NOTIFIED ABOUT CONFIDENTIAL PT NO NAME NOTED OUTSIDE OF ROOM. PT ON TELE, TELE NOTIFIED OF TRANSFER. VSS. PT REPORTS ANXIETY. PT REPORTS NO CHEST PAIN, PT REPORTS HEADACHE, MEDICATED PER EMAR. PT WEARS O2 AT BASELINE. PT ON 1L OF O2, SATS ARE 99%. PT REPORTS INC/CONT. PT IN BED, BED IN LOWEST POSITION, BED LOCKED, CALL LIGHT IN REACH.
[2025-05-15] MEDS ORDERED: NS 250 ML IV PRN (20:55)
[2025-05-16] VITALS (9 sets, daily range): BP systolic 138–189; BP diastolic 52–93
[2025-05-16] MEDS ORDERED: FentaNYL Citrate 50 MCG/ML 2 ML Injection IV ONE (01:30)
--- NOTE | 2025-05-16 02:55 | NUR ---
REPORT RECEIVED FROM DELILAH Back AND ASSUMED CARE OF PT. THIS RN AGREES TO HER SHUCKER ASSESSMENT FINDINGS AND PT CURRENTLY IS SLEEPING W/O S/S DISTRESS.
[2025-05-16 05:21] LABS: Anion Gap 9.0 mmol/L (3-11); Blood Urea Nitrogen 33.0 mg/dL (8-24); CO2, Blood 26.0 mmol/L (21-32); Calcium, Blood 8.4 mg/dL (8.5-10.1); Chloride, Blood 103.0 mmol/L (98-108); Creatinine, Blood 2.03 mg/dL (0.40-1.00); Glucose, Blood 149.0 mg/dL (70-99); Potassium, Blood 3.9 mmol/L (3.5-5.5); Sodium, Blood 134.0 mmol/L (136-145)
--- NOTE | 2025-05-16 12:21 | NUR ---
NOTE PT COMPLAINT THIS AM WAS HEADACHE. PT BLOOD PRESSURE THIS AM WAS 177/90. PT MEDICATED WITH TYLENOL. THIS RN RECHECKED PT BLOOD PRESSURE POST TYLENOL ADMINISTRATION. AT 0836 PT BLOOD PRESSURE WAS 175/76. PT MEDICATED FOR BLOOD PRESSURE AT 0947. PT BLOOD PRESSURE AT 1039 WAS 152/93. PT ALSO MEDICATED WITH ONE TIME DOSE OF ROXICODONE. URINE CULTURE CAME BACK, THIS RN NOTIFIED DR. HEALY.
--- NOTE | 2025-05-16 12:59 | NUR ---
The patient is lying in bed and alert. She tells me that she is experiencing pain in her back and head and is very constipated. She assures me that her RN knows and is working on it. She tells me that she continues to worry too much. I normalize her fears and feelings and provided therapeutic listening, anxiety containment and prayer. The patient voices her gratitude for the prayer. She shows signs of greater peace. I will continue to remainavailable to the patient and family.
[2025-05-16] MEDS ORDERED: Docusate Sodium/Senna 1 Tab PO SCH (14:00)
--- NOTE | 2025-05-16 17:05 | NUR ---
SHIFT SUMMARY PT A&OX4. PT ADMITTED DUE TO PYELONEPHRITIS. REPORTED PT WILL STAY ANOTHER DAY SO WE CAN MONITOR BLOOD PRESSURE. PT CONFEDERATED [place]. HYDRALAZINE GIVEN X2 DUE TO BLOOD PRESSURE. LAST BLOOD PRESSURE AT 1649 WAS 138/62. PT ON TELE, NO TELE REPORTS NOTED. PT REPORTS ANXIETY. DR. HEALY ORDERED VALIUM Q8 PRN AND D/C BEDTIME DOSE. PT GOT X1 VALIUM THIS SHIFT. PT REPORTS NAUSEA. PT REPORTS CONSTIPATION BUT REPORTS GAS. DR. HEALY ORDERED SCHEDULED [place]. PT ENCOURAGED MOBILITY. PT REPORTS NO CHEST PAIN, PT REPORTS HEADACHE/BACK PAIN, MEDICATED PER EMAR. TYLENOL SCHEDULED Q6 AND PT GOT ONE TIME OF ROXICODONE. PT WEARS O2 AT BASELINE. PT ON 1L OF O2, SATS ARE 98%. CONT PULSE OX ON. PT REPORTS INC/CONT. PT IS SBA TO BSC. APS CAME TO INTERVIEW PT TODAY. PT IN BED, BED IN LOWEST POSITION, BED LOCKED, CALL LIGHT IN REACH.
[2025-05-17] MEDS ORDERED: Magnesium Citrate 300 ML BTL PO SCH (00:50)
[2025-05-17 04:23] VITALS: BP 165/71
[2025-05-17 05:28] LABS: BASOPHILS ABSOLUTE AUTO 0.04 K/mm3 (0.00-0.23); BASOPHILS PERCENT AUTO 0 % (0-2); EOSINOPHILS ABSOLUTE AUTO 0.14 K/mm3 (0.00-0.68); EOSINOPHILS PERCENT AUTO 2 % (0-6); Hematocrit 40.7 % (33.0-51.0); Hemoglobin 12.8 g/dL (11.5-16.0); IMMATURE GRAN ABSOLUTE AUTO 0.04 K/mm3 (0.00-0.10); IMMATURE GRAN PERCENT AUTO 0 % (0-1); LYMPHOCYTES ABSOLUTE AUTO 1.96 K/mm3 (0.84-5.20); LYMPHOCYTES PERCENT AUTO 21 % (21-46); MONOCYTES ABSOLUTE AUTO 0.76 K/mm3 (0.16-1.47); MONOCYTES PERCENT AUTO 8 % (4-13); Mean Corpuscular HGB Conc 31.4 g/dL (31.5-36.5); Mean Corpuscular Volume 92 fL (80-100); NEUTROPHILS ABSOLUTE AUTO 6.29 K/mm3 (1.96-9.15); NEUTROPHILS PERCENT AUTO 68 % (41-73); NRBC ABSOLUTE 0.00 K/mm3 (0.00-0.02); NRBC Auto 0.0 /100 WBC (0.0-0.2); Platelet Count 255 K/mm3 (150-400); RDW Coefficient Variation 14.0 % (11.7-14.2); RDW Standard Deviation 47.8 fL (35.1-46.3)
--- NOTE | 2025-05-17 05:44 | NUR ---
SHIFT SUMMARY PATIENT A/O X4- SBA WITH FWW. PT HAS NOT HAD TO HAVE HYDRALAZINE THIS SHIFT, BP HAS REMAINED BELOW 170. NO CHEST PAIN REPORTED. PT REPORTING INCREASED ANXIETY AND PERSISTENT HEAD ACHE. PT REQUESTING MAGNESIUM FOR RLS, XANAX FOR ANXIETY, AND ADVIL FOR HEADACHE. HOSPITAL GAVE ORDERS FOR XANAX AND MAGNESIUM, AND STATED PATIENT COULD HAVE A ONE TIME DOSE OF ADVIL. ORDERS PLACED AND PT TREATED PER EMAR. HEADACHE AND ANXIETY RESOLVED AT THIS TIME. PT CONTINUES TO REPORT CONSTIPATION, THIS RN CALLED HOSPITALIST AGAIN AND RECIEVED ORDER FOR SUPPOSITORY, THOUGH PT REQUESTED IT BE DONE IN THE MORNING SHE IS TIRED A THIS TIME. TELE IN PLACE WITH NO REPORTS. NO ACUTE CHANGES THROUGHOUT SHIFT, BED IN LOWEST POSITION AND CALL LIGHT WITHIN REACH.
[2025-05-17 06:00] LABS: Anion Gap 10.0 mmol/L (3-11); Blood Urea Nitrogen 27.0 mg/dL (8-24); CO2, Blood 27.0 mmol/L (21-32); Calcium, Blood 8.8 mg/dL (8.5-10.1); Chloride, Blood 100.0 mmol/L (98-108); Creatinine, Blood 1.96 mg/dL (0.40-1.00); Glucose, Blood 139.0 mg/dL (70-99); Potassium, Blood 4.0 mmol/L (3.5-5.5); Sodium, Blood 133.0 mmol/L (136-145)
[2025-05-17 07:36] VITALS: BP 141/85
[2025-05-17 14:17] VITALS: BP 168/77
[2025-05-17] MEDS ORDERED: HydrALAZINE HCl 20 MG / ML 1ML Vial IV PRN (14:30)
[2025-05-17 16:07] VITALS: BP 156/73
[2025-05-17 17:52] VITALS: BP 179/73
--- NOTE | 2025-05-17 18:43 | NUR ---
SUMMARY- PT A/O X4, INDEPENDANT TO BATHROOM. DENIES ANY SYMPTOMS OF UTI CURRENTLY. DENIES CHEST PRESSURE UPON ADMIT. BLOOD PRESURES STILL MARGIONALLY HIGH. CHANGED PARAMETERS FOR IV HYDRALAZINE. ADMIN X1 DOSE 1730 WITH GOOD EFFECT. PT HAD A MED BM TODAY AFTER FEELING CONSTIPATED TODAY AFTER SOME BOWEL CARE. PT TOLERATING FOOD AND FLUID. PT HAS BEEN IN COMMUNICATION WITH CASE MANAGEMENT IN RELATION TO DC PLAN. ALSO APS INVOLVED IN LOOKING INTO FRAUD OF PT'S BANK ACCOUNT. PT IS FREQ WORRIED/ANXIOUS. MEDICATED ONCE WITH XANAX TODAY WITH GOOD RELEIF. TELE SR 70-80- OXYGEN AT 1L/NC, CONT PULSE OX 96-99%. WILL REPORT TO NOC CLARKE
[2025-05-17 21:14] VITALS: BP 166/89
[2025-05-18 00:41] VITALS: BP 173/76
[2025-05-18 04:39] VITALS: BP 164/74
[2025-05-18 04:57] LABS: BASOPHILS ABSOLUTE AUTO 0.04 K/mm3 (0.00-0.23); BASOPHILS PERCENT AUTO 1 % (0-2); EOSINOPHILS ABSOLUTE AUTO 0.22 K/mm3 (0.00-0.68); EOSINOPHILS PERCENT AUTO 3 % (0-6); Hematocrit 40.5 % (33.0-51.0); Hemoglobin 12.8 g/dL (11.5-16.0); IMMATURE GRAN ABSOLUTE AUTO 0.02 K/mm3 (0.00-0.10); IMMATURE GRAN PERCENT AUTO 0 % (0-1); LYMPHOCYTES ABSOLUTE AUTO 2.05 K/mm3 (0.84-5.20); LYMPHOCYTES PERCENT AUTO 24 % (21-46); MONOCYTES ABSOLUTE AUTO 0.75 K/mm3 (0.16-1.47); MONOCYTES PERCENT AUTO 9 % (4-13); Mean Corpuscular HGB Conc 31.6 g/dL (31.5-36.5); Mean Corpuscular Volume 93 fL (80-100); NEUTROPHILS ABSOLUTE AUTO 5.56 K/mm3 (1.96-9.15); NEUTROPHILS PERCENT AUTO 64 % (41-73); NRBC ABSOLUTE 0.00 K/mm3 (0.00-0.02); NRBC Auto 0.0 /100 WBC (0.0-0.2); Platelet Count 271 K/mm3 (150-400); RDW Coefficient Variation 14.2 % (11.7-14.2); RDW Standard Deviation 48.3 fL (35.1-46.3)
--- NOTE | 2025-05-18 05:19 | NUR ---
SHIFT SUMMARY PATIENT A/O X4- SBA/IND IN THE ROOM WITH FWW. VOIDING CLEAR YELLOW URINE W/ NO REPORT OF DISCOMFORT. REPORTED BM YESTERDAY AFTER BOWEL CARE, TOLERATING PO INTAKE W/ NO REPORT OF N/V. MEDICATED X1 WITH HYDRALIZINE FOR HTN AND 1X FOR ANXIETY PRN. TELE MONITORING W/ NO REPORTED CHANGES- NO REPORT OF CHEST PAIN/PRESSURE. NEW IV PLACED IN R FA. NO ACUTE CHANGES. PT UTILIZING CALL LIGHT, BED IN LOWEST POSITION. WILL REPORT TO ONCOMING RN.
[2025-05-18 05:31] LABS: Alanine Aminotransfer (ALT/SGP 19.0 U/L (12-78); Albumin, Blood 3.1 g/dL (3.4-5.0); Albumin/Globulin Ratio 0.9 (0.8-1.8); Anion Gap 9.0 mmol/L (3-11); Aspartate Aminotrans (AST/SGOT 20.0 U/L (12-37); Bilirubin, Total 0.4 mg/dL (0.1-1.0); Blood Urea Nitrogen 27.0 mg/dL (8-24); CO2, Blood 27.0 mmol/L (21-32); Calcium, Blood 8.8 mg/dL (8.5-10.1); Chloride, Blood 103.0 mmol/L (98-108); Creatinine, Blood 1.75 mg/dL (0.40-1.00); Globulin, Blood 3.3 g/dL (2.2-4.0); Glucose, Blood 127.0 mg/dL (70-99); Potassium, Blood 4.7 mmol/L (3.5-5.5); Sodium, Blood 134.0 mmol/L (136-145); Total Protein, Blood 6.4 g/dL (6.4-8.2)
[2025-05-18 08:04] VITALS: BP 146/79
[2025-05-18 13:27] VITALS: BP 134/74
--- NOTE | 2025-05-18 19:36 | NUR ---
SHIFT SUMMARY PT A&OX4, 1L O2, SR IN 80S ON TELE, VSS, BP SLIGHTLY ELEVATED, BUT IMPROVED TODAY. PT C/O HEADACHE, BACK ACHE, AND FOOT PAIN, MD AWARE PRN OXYCODONE GIVEN PER ORDER WITH GOOD RELIEF. DULCOLAX SUPPOSITORY GIVEN WITH 2 BM TO BSC THIS SHIFT. URINARY FREQUENCY WITH LEAKING IN BRIEF AT TIMES. PT ABLE TO MAKE NEEDS KNOWN, CALL LIGHT IN REACH.
[2025-05-18 21:10] VITALS: BP 152/55
[2025-05-18 23:32] VITALS: BP 158/69
[2025-05-19 04:13] VITALS: BP 170/70
[2025-05-19 04:41] LABS: BASOPHILS ABSOLUTE AUTO 0.04 K/mm3 (0.00-0.23); BASOPHILS PERCENT AUTO 1 % (0-2); EOSINOPHILS ABSOLUTE AUTO 0.22 K/mm3 (0.00-0.68); EOSINOPHILS PERCENT AUTO 3 % (0-6); Hematocrit 38.6 % (33.0-51.0); Hemoglobin 11.8 g/dL (11.5-16.0); IMMATURE GRAN ABSOLUTE AUTO 0.02 K/mm3 (0.00-0.10); IMMATURE GRAN PERCENT AUTO 0 % (0-1); LYMPHOCYTES ABSOLUTE AUTO 2.29 K/mm3 (0.84-5.20); LYMPHOCYTES PERCENT AUTO 29 % (21-46); MONOCYTES ABSOLUTE AUTO 0.71 K/mm3 (0.16-1.47); MONOCYTES PERCENT AUTO 9 % (4-13); Mean Corpuscular HGB Conc 30.6 g/dL (31.5-36.5); Mean Corpuscular Volume 92 fL (80-100); NEUTROPHILS ABSOLUTE AUTO 4.51 K/mm3 (1.96-9.15); NEUTROPHILS PERCENT AUTO 58 % (41-73); NRBC ABSOLUTE 0.00 K/mm3 (0.00-0.02); NRBC Auto 0.0 /100 WBC (0.0-0.2); Platelet Count 240 K/mm3 (150-400); RDW Coefficient Variation 14.2 % (11.7-14.2); RDW Standard Deviation 48.2 fL (35.1-46.3)
[2025-05-19 05:13] LABS: Alanine Aminotransfer (ALT/SGP 19.0 U/L (12-78); Albumin, Blood 2.8 g/dL (3.4-5.0); Albumin/Globulin Ratio 0.8 (0.8-1.8); Anion Gap 9.0 mmol/L (3-11); Aspartate Aminotrans (AST/SGOT 17.0 U/L (12-37); Bilirubin, Total 0.2 mg/dL (0.1-1.0); Blood Urea Nitrogen 32.0 mg/dL (8-24); CO2, Blood 28.0 mmol/L (21-32); Calcium, Blood 8.4 mg/dL (8.5-10.1); Chloride, Blood 101.0 mmol/L (98-108); Creatinine, Blood 1.98 mg/dL (0.40-1.00); Globulin, Blood 3.3 g/dL (2.2-4.0); Glucose, Blood 131.0 mg/dL (70-99); Potassium, Blood 4.7 mmol/L (3.5-5.5); Sodium, Blood 133.0 mmol/L (136-145); Total Protein, Blood 6.1 g/dL (6.4-8.2)
--- NOTE | 2025-05-19 05:28 | NUR ---
GAS ANALYST SUMMARY NO ACUTE EVENTS. PT REPORTS AN OVERALL BETTER NIGHT THAN PREVIOUS NIGHT. PT REPORTS FEELING AND RESTING BETTER. SCHEDULED AND PRN MEDS GIVEN PER SEP. PT GIVEN OXYCODONE AND TYLENOL FOR PAIN R/T HEADACHE AND SHOULDER PAIN. PT REQUESTED XANAX FOR ANXIETY APROX 0445. PT VITALS TAKEN Q4 WITH BLOOD PRESSURE TRENDING UP. IV HYDRALAZINE GIVEN 1X TO TX AFTER 4AM VITALS. PT REMAINS ON 1LPM O2 NASAL CANULA. CONT PULSE OX IN PL AND SATURATIONS IN MID 90'S WITH NO EPISODES OF DESAT. PT ON TELE, NORMAL SINUS WITH NO EVENTS REPORTED. PT MAKING NEEDS KNOWN. CALL LIGHT ACCESSIBLE. CARE WILL CONTINUE UNTIL REPORT GIVEN TO ONCOMING NURSE.
[2025-05-19 06:11] VITALS: BP 141/59
[2025-05-19 07:26] VITALS: BP 142/68
[2025-05-19 11:26] VITALS: BP 148/63
[2025-05-19 15:49] VITALS: BP 155/67
--- NOTE | 2025-05-19 18:34 | NUR ---
SHIFT SUMMARY PT A&OX4, VSS, 1 L O2, SR IN 80S ON TELE. PT REPORTED BLURRED VISION, MRI DONE, SEE REPORT. PT C/O HEADACHE, BACK PAIN, AND NECK PAIN, TREATED WITH PRN OXYCODONE AND TYLENOL. SCHEDULED BOWEL MEDS GIVEN WITH SOFT BMS. PT ABLE TO MAKE NEEDS KNOWN, CALL LIGHT IN REACH.
[2025-05-19 19:52] VITALS: BP 145/66
[2025-05-19] MEDS ORDERED: Lidocaine 4% 1 Patch TOP SCH (21:50)
[2025-05-20] VITALS (7 sets, daily range): BP systolic 136–173; BP diastolic 58–98
--- NOTE | 2025-05-20 02:42 | NUR ---
HANDED OFF RN PATIENT CARE AT APROX 2330 TO CLARKE CHOW.
--- NOTE | 2025-05-20 04:40 | NUR ---
PROSTHODONTIST/OWNER SUMMARY ASSUMED CARE FOR PT AT APPROX 2330 FROM [facility]AYL[facility] MIR. PT A&OX4, VSS, EXCEPT HTN. HYDRALAZINE ADMIN 1X FOR HTN PER EMAR W/ GOOD EFFECT. ABLE TO MAKE NEEDS KNOWN EFFECTIVELY. HAS BEEN ASLEEP FOR MOST OF THE SHIFT SINCE ASSUMPTION OF CARE. CHEST RISE/RESPIRATIONS NOTED. PT REQUESTED OXY 1X FOR HEADACHE AND XANAX 1X FOR ANXIETY. BOTH ADMIN W/ GOOD EFFECT. REMAINS ON TELE. SR AT 91. BED RAILS UP X 2, BED IN LOWEST POSITION, BED WHEELS LOCKED, PERSONAL BELONGINGS AND CALL LIGHT WITHIN REACH FOR SAFETY.
[2025-05-20 06:32] LABS: BASOPHILS ABSOLUTE AUTO 0.04 K/mm3 (0.00-0.23); BASOPHILS PERCENT AUTO 1 % (0-2); EOSINOPHILS ABSOLUTE AUTO 0.21 K/mm3 (0.00-0.68); EOSINOPHILS PERCENT AUTO 3 % (0-6); Hematocrit 35.6 % (33.0-51.0); Hemoglobin 11.3 g/dL (11.5-16.0); IMMATURE GRAN ABSOLUTE AUTO 0.02 K/mm3 (0.00-0.10); IMMATURE GRAN PERCENT AUTO 0 % (0-1); LYMPHOCYTES ABSOLUTE AUTO 2.35 K/mm3 (0.84-5.20); LYMPHOCYTES PERCENT AUTO 30 % (21-46); MONOCYTES ABSOLUTE AUTO 0.72 K/mm3 (0.16-1.47); MONOCYTES PERCENT AUTO 9 % (4-13); Mean Corpuscular HGB Conc 31.7 g/dL (31.5-36.5); Mean Corpuscular Volume 92 fL (80-100); NEUTROPHILS ABSOLUTE AUTO 4.61 K/mm3 (1.96-9.15); NEUTROPHILS PERCENT AUTO 58 % (41-73); NRBC ABSOLUTE 0.00 K/mm3 (0.00-0.02); NRBC Auto 0.0 /100 WBC (0.0-0.2); Platelet Count 222 K/mm3 (150-400); RDW Coefficient Variation 14.2 % (11.7-14.2); RDW Standard Deviation 47.8 fL (35.1-46.3)
[2025-05-20 06:54] LABS: Anion Gap 8.0 mmol/L (3-11); Blood Urea Nitrogen 36.0 mg/dL (8-24); CO2, Blood 29.0 mmol/L (21-32); Calcium, Blood 8.3 mg/dL (8.5-10.1); Chloride, Blood 101.0 mmol/L (98-108); Creatinine, Blood 1.73 mg/dL (0.40-1.00); Glucose, Blood 154.0 mg/dL (70-99); Potassium, Blood 4.5 mmol/L (3.5-5.5); Sodium, Blood 133.0 mmol/L (136-145)
[2025-05-20] MEDS ORDERED: Ampicillin Sod/Sulbactam Sod 1.5 GM in NS 100 ML IV SCH (10:07)
--- NOTE | 2025-05-20 18:12 | NUR ---
SHIFT SUMMARY PATIENT ALERT AND ORIENTED X4.HARD OF HEARING. PLEASANT AND RECEPTIVE DURING CARE. TOLERATING PO AND VOIDING. COMPLAINED OF PAIN, MEDICATION ADMINISTERED PER EMAR. PATIENT MAKE NEEDS KNOWN. NO ACUTE CHANGE DURING THIS SHIFT. VITAL SIGNS STABLE. SELF-RESPOSITIONED THROUGHOUT THE SHIFT. BED LOCKED AND IN LOWEST POSITION. CALL LIGHT WITHIN REACH.
--- NOTE | 2025-05-21 02:37 | NUR ---
ORE STORAGE DRIER SUMMARY A/O X 4. HARD OF HEARING, VERBALLY LOUD TO TALK WITH. O2 AT 1-2L/MIN PER NC. MED TELE SR IN THE 70'S. HEART HEALTHY DIET. HX DM, BUT DAY SHIFT REPORTED MAINTAINED BY DIET. UP WITH OBS TO BEDSIDE COMMODE. IV ANTIBIOTICS ADMIN ORDERED, SEE MAR. DX PYLONEPHRITIS. OHERWISE, HAS BEEN RESTING QUIETLY WITH OCCASIONAL INTEERRUPTIONS FOR PAIN MEDS. CALL LIGHT IN REACH, RAILS UP X 2, AND BED IN LOW POSITION FOR SAFETY. WILL CONT TO MONITOR
[2025-05-21 07:18] VITALS: BP 159/71
[2025-05-21 11:10] VITALS: BP 169/64
[2025-05-21 15:20] VITALS: BP 163/65
--- NOTE | 2025-05-21 18:24 | NUR ---
SHIFT SUMMARY PATIENT A&0 X4. PLEASANT AND COOPERATIVE DURING CARE. CAROTID DUPLEX DONE TODAY. NPO AFTER MIDNIGHT FOR RENAL DUPLEX TOMORROW. COMPLAINED OF PAIN, MEDICATION ADMINISTERED PER EMAR. PATIENT MAKE NEEDS KNOWN. NO ACUTE CHANGE DURING THIS SHIFT. VSS. SELF-RESPOSITIONED THROUGHOUT THE SHIFT. BED LOCKED AND IN LOWEST POSITION. CALL LIGHT WITHIN REACH.
[2025-05-21 19:19] VITALS: BP 166/66
[2025-05-21 23:42] VITALS: BP 167/68
[2025-05-22] VITALS (7 sets, daily range): BP systolic 142–192; BP diastolic 64–86
--- NOTE | 2025-05-22 03:43 | NUR ---
NIGTHT SHIFT SUMMARY BP ELEVATED, OTHERWISE VSS. HYPERTENSION MEDS GIVEN - SEE MAR FOR DETAILS. ADMIT DX PYELONEPHRITIS. CONT OF BAOWL/BLADDER. UP TO BEDSIDE COMMODE NEEDED BY SELF, ABLE TO REPOSITION SELF IN BED WITHOUT ASSIST. IV ANTIBIOTICS ADMIN ORDERED. HAS BEEN NPO SINCE MIDNIGHT FOR AM PROCEDURE. 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 CALL LIGHT IN REACH, RAILS UP X 2 AND BED IN LOW POSITION FOR SAFETY. WILL CONTINUE TO MONITOR.
[2025-05-22] MEDS ORDERED: Cosyntropin 0.25 MG / ML 1ML Vial IM ONE (08:30)
--- NOTE | 2025-05-22 09:00 | NUR ---
pt laying in bed with eyes closed, wakes easily, a/ox3, forgetful, lungs are clear dim in bases, currently on 1 liter 02 via n/c, resp even and unlabored, no cough noted, hrr, tele in place running sr iwth pvs and pacs, occ, at rate of 63bpm, piv to rfa site is clear and patent, btx4, abd flat soft nontender, voids without diff via bsc, skin c/w/d, kamilleew, gets herself up to bsc indep, kimmie, call light in reach.
--- NOTE | 2025-05-22 12:45 | NUR ---
LATE ENTRY 1000 THIS RN IN PT'S ROOM TO ADMINISTER CORTROSYN AFTER LAB NARCISA BLOOD. DR. HEALY IN ROOM WITH PT. THIS RN FOUND THAT THE ORDER WAS TO ADMINISTER IM AND DISCUSSED WITH DR. HEALY THAT THIS MEDICATION IS ADMINISTERED IV MOST OF THE TIME. DR. HEALY REPORTED HE WANTED IT TO BE ADMINISTERED IV. DR. HEALY GAVE THIS RN A VERBAL ORDER TO ADMINISTER SAME DOSE IV INSTEAD OF IM. MEDICATION ADMINISTERED IV PER VERBAL ORDER.
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
--- NOTE | 2025-05-22 17:53 | NUR ---
pt complained about a strong h/a several times today, medicated with pain meds per mar with good relief, no further changes this shift, call light in reach.
[2025-05-23] VITALS (8 sets, daily range): BP systolic 137–187; BP diastolic 59–80
[2025-05-23 04:48] LABS: BASOPHILS ABSOLUTE AUTO 0.03 K/mm3 (0.00-0.23); BASOPHILS PERCENT AUTO 1 % (0-2); EOSINOPHILS ABSOLUTE AUTO 0.19 K/mm3 (0.00-0.68); EOSINOPHILS PERCENT AUTO 3 % (0-6); Hematocrit 33.7 % (33.0-51.0); Hemoglobin 10.5 g/dL (11.5-16.0); IMMATURE GRAN ABSOLUTE AUTO 0.01 K/mm3 (0.00-0.10); IMMATURE GRAN PERCENT AUTO 0 % (0-1); LYMPHOCYTES ABSOLUTE AUTO 1.91 K/mm3 (0.84-5.20); LYMPHOCYTES PERCENT AUTO 29 % (21-46); MONOCYTES ABSOLUTE AUTO 0.64 K/mm3 (0.16-1.47); MONOCYTES PERCENT AUTO 10 % (4-13); Mean Corpuscular HGB Conc 31.2 g/dL (31.5-36.5); Mean Corpuscular Volume 93 fL (80-100); NEUTROPHILS ABSOLUTE AUTO 3.88 K/mm3 (1.96-9.15); NEUTROPHILS PERCENT AUTO 58 % (41-73); NRBC ABSOLUTE 0.00 K/mm3 (0.00-0.02); NRBC Auto 0.0 /100 WBC (0.0-0.2); Platelet Count 226 K/mm3 (150-400); RDW Coefficient Variation 13.7 % (11.7-14.2); RDW Standard Deviation 47.0 fL (35.1-46.3)
[2025-05-23 05:03] LABS: Anion Gap 8.0 mmol/L (3-11); Blood Urea Nitrogen 33.0 mg/dL (8-24); CO2, Blood 28.0 mmol/L (21-32); Calcium, Blood 8.2 mg/dL (8.5-10.1); Chloride, Blood 101.0 mmol/L (98-108); Creatinine, Blood 1.57 mg/dL (0.40-1.00); Glucose, Blood 138.0 mg/dL (70-99); Potassium, Blood 4.6 mmol/L (3.5-5.5); Sodium, Blood 132.0 mmol/L (136-145)
--- NOTE | 2025-05-23 05:58 | NUR ---
SHIFT SUMMARY A&OX4. ABLE TO MAKE NEEDS KNOWN. CALLS APPROPRIATELY. HAD SOME HTN DUE TO BEING ANXIOUS WHEN GETTING VITALS TAKEN. ONCE PT RELAXED THIS WENT DOWN. HAD A HEADACHE AND TYLENOL WAS GIVEN. PT SLEPT FOR A LONG TIME BUT WOKE UP WITH A HEADACHED STILL. PT MEDICATED PER EMAR AND THIS APPEARED TO HAVE WORKED TO BETTER MANAGE HER PAIN. PT USING BSC APPROPRIATELY. CURRENTLY PT IS SLEEPING IN BED AT LOWEST POSITION WITH CALL LIGHT WITHIN REACH.
[2025-05-23] MEDS ORDERED: Multivitamins 1 Tab PO SCH (09:00)
--- NOTE | 2025-05-23 16:36 | NUR ---
PATIENT ALERT AND COOPERATIVE WITH CARE, PATIENT IS HARD OF HEARING AND VISION IS POOR WELL. PATIENT CALM THIS AM AND THIS AFTERNOON STATED SHE WAS HAVING A PANICK ATTACK. PATIENT GIVEN MEDICATION, AND MD AWARE. PATIENT TOOK SELF OUT OF ROOM STATING IT WAS HOT AND SHE NEEDED COLD AIR, PATIENT WAS HEADING OUTSIDE. TOOK PATIENT OUT SIDE FOR ABOUT 15 MIN AND WAS ABLE TO CALM PT DOWN. WENT BACK TO ROOM AND PATIENT STARTED CRYING AGAIN. 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 PATIENT STILL NOT SATISFIED, PAIN MED ADMINISTERED AND PATIENT NOW SLEEPING. CALL LIGHT WITHIN REACH.
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
--- NOTE | 2025-05-24 03:59 | NUR ---
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 HARD OF HEARING. ADMIT DX PYELONEPHRITIS. OCCASIONAL PAIN MEDS. COOPERATIVE WITH CARE, BUT LOUD SPEAKING. O2 PER NC. IV ANTIBIOTICS, BP MEDS AND ANTI ANXIETY MEDS ADMIN - SEE MAR FOR DETAILS. UP TO BEDSIDE COMMODE NEEDED, ABLE TO REPOSITION SELF IN BED FOR COMFORT. HAS BEEN RESTING QUIELTY WITH OCCAIONAL INTERRUPTIONS. NEW IV PLACED, VOICED APPRECIAION. CALL LIGHT IN REACH, RAILS UP X 2 AND BED IN LOW POSITION FOR SAFETY.
[2025-05-24 04:46] VITALS: BP 149/62
[2025-05-24 05:25] LABS: BASOPHILS ABSOLUTE AUTO 0.05 K/mm3 (0.00-0.23); BASOPHILS PERCENT AUTO 1 % (0-2); EOSINOPHILS ABSOLUTE AUTO 0.24 K/mm3 (0.00-0.68); EOSINOPHILS PERCENT AUTO 3 % (0-6); Hematocrit 36.7 % (33.0-51.0); Hemoglobin 11.3 g/dL (11.5-16.0); IMMATURE GRAN ABSOLUTE AUTO 0.03 K/mm3 (0.00-0.10); IMMATURE GRAN PERCENT AUTO 0 % (0-1); LYMPHOCYTES ABSOLUTE AUTO 2.74 K/mm3 (0.84-5.20); LYMPHOCYTES PERCENT AUTO 28 % (21-46); MONOCYTES ABSOLUTE AUTO 0.86 K/mm3 (0.16-1.47); MONOCYTES PERCENT AUTO 9 % (4-13); Mean Corpuscular HGB Conc 30.8 g/dL (31.5-36.5); Mean Corpuscular Volume 93 fL (80-100); NEUTROPHILS ABSOLUTE AUTO 5.84 K/mm3 (1.96-9.15); NEUTROPHILS PERCENT AUTO 60 % (41-73); NRBC ABSOLUTE 0.00 K/mm3 (0.00-0.02); NRBC Auto 0.0 /100 WBC (0.0-0.2); Platelet Count 274 K/mm3 (150-400); RDW Coefficient Variation 13.7 % (11.7-14.2); RDW Standard Deviation 47.4 fL (35.1-46.3)
[2025-05-24 05:57] LABS: Alanine Aminotransfer (ALT/SGP 23.0 U/L (12-78); Albumin, Blood 2.8 g/dL (3.4-5.0); Albumin/Globulin Ratio 0.8 (0.8-1.8); Anion Gap 7.0 mmol/L (3-11); Aspartate Aminotrans (AST/SGOT 16.0 U/L (12-37); Bilirubin, Total 0.3 mg/dL (0.1-1.0); Blood Urea Nitrogen 36.0 mg/dL (8-24); CO2, Blood 28.0 mmol/L (21-32); Calcium, Blood 8.5 mg/dL (8.5-10.1); Chloride, Blood 104.0 mmol/L (98-108); Creatinine, Blood 1.8 mg/dL (0.40-1.00); Globulin, Blood 3.4 g/dL (2.2-4.0); Glucose, Blood 125.0 mg/dL (70-99); Potassium, Blood 4.8 mmol/L (3.5-5.5); Sodium, Blood 134.0 mmol/L (136-145); Total Protein, Blood 6.2 g/dL (6.4-8.2)
[2025-05-24 07:34] VITALS: BP 148/69
[2025-05-24 12:26] VITALS: BP 157/59
[2025-05-24 15:45] VITALS: BP 146/63
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
--- NOTE | 2025-05-24 18:27 | NUR ---
PATIENT ALERT AND COOPERATIVE WITH CARE PATIENT DID STATE SHE WENT TO THE BATHROOM AND HIT HER BACK ON THE SHOWER ATTACHMENT ON THE TOILET. THIS RN LOOKED AT LOWER BACK AND NO REDNESS NOTED. PATIENT NOT HAPPY WITH BEING DISCHARGE TOMORROW.
[2025-05-24 19:47] VITALS: BP 161/76
[2025-05-24 23:55] VITALS: BP 176/75
[2025-05-25] MEDS ORDERED: Saline Nasal Spray 45 ML PRN (01:40)
[2025-05-25] MEDS ORDERED: Morphine Sulfate 20 MG/1ML 1 ML Oral Syringe SL PRN (05:35)
--- NOTE | 2025-05-25 06:23 | NUR ---
SHIFT SUMMARY: PATIENT A+O X4 DURING THIS SHIFT AND ABLE TO MAKE NEEDS KNOWN. PATIENT MEDICATED FOR PAIN AND ANXIETY DURING THIS SHIFT. SEE EMAR FOR DETAILS. COOPERATIVE WITH CARE, NO ISSUES. HEART SOUNDS WNL, LUNGS CLEAR IN ALL LUNG RODRIGEZ. PATIENT UP DURING THIS SHIFT TO VOID FREQUENTLY. NO BOWEL MOVEMENT NOTED DURING THIS NIGHT. SKIN INTACT. PLAN TO POSSIBLY D/C HOME TODAY. BED IN LOWEST POSITION, CALL LIGHT WITHIN REACH.
[2025-05-25 07:50] VITALS: BP 161/73
--- NOTE | 2025-05-25 09:16 | NUR ---
pt laying in bed with eyes closed, wakes easily, is a bit impulsive, and attempted to get oob with lines tangled, is somewhat directable, a/ox3, very [place], currently on 1 liter 02 for sleep, no cough noted, resp even and unlabored, hrr, tele in place running sr with pac, pvcs rate in the 60s to 70s, no edema noted, ppp+1, cap refill<3 sec, vs stable, afebrile, piv to lfa site burned when attempted to flush, and bubbled up, new piv place to lfa site is clear and patent, btx4, abd flat soft nontender, voids without diff, ambulates herself to the bathroom with walker, skin c/w/d, kimmie lema, call light in reach.
[2025-05-25 11:32] VITALS: BP 164/76
--- NOTE | 2025-05-25 14:24 | NUR ---
pt had a h/a, tx per emar, is much better now, no further needs at this time, call light in reach.
--- NOTE | 2025-05-25 14:57 | NUR ---
ASSUMED CARE OF PATIENT. PATIENT IN HER BED RESTING, RESPIRATIONS EVEN AND UNLABORED, PENDING D/C
[2025-05-25 16:38] VITALS: BP 157/74
[2025-05-25] MEDS ORDERED: HYDR10 PO (17:03)
[2025-05-25] MEDS ORDERED: LIDOCAINE1 EAC1 TOP (17:03)
[2025-05-25] MEDS ORDERED: LOSA50 PO (17:04)
[2025-05-25] MEDS ORDERED: MELA3 PO (17:04)
[2025-05-25] MEDS ORDERED: DULERA 200 MCG-13 GM INH (17:05)
[2025-05-25] MEDS ORDERED: MULVITA PO (17:05)
[2025-05-25] MEDS ORDERED: NITR.4SL SL (17:06)
[2025-05-25] MEDS ORDERED: MIRALAX17 GM PO (17:06)
[2025-05-25] MEDS ORDERED: NASAL SPRAY88 ML (17:09)
[2025-05-25] MEDS ORDERED: B-1100 M1 PO (17:09)
[2025-05-25] MEDS ORDERED: ALDACTONE25 MG PO (17:09)
[2025-05-25] MEDS ORDERED: SPIRIVA RESPIMAT4 G3 INH (17:10)
[2025-05-25] MEDS ORDERED: AMLO10 PO (17:18)
--- NOTE | 2025-05-25 18:05 | NUR ---
DISCHARGE NOTE: WENT OVER DISCHARGE WITH THE PATIENT. IV AND TELE REMOVED, PATIENT WAS ALREADY DRESSED, BELONGINGS COLLECTED. PATIENT WHEELED DOWN TO [facility] TO BE PICKED UP FROM [place]. NO SIGNS OR SYMPTOMS OF DISTRESS DURING DISCHARGE.
== END 2025-05-25 18:10 | disposition home health service (06) | DRG 690 ==
LOC: ER 17:48 → PCU 17:49 → MEDS 23:24 → PCU 05-14 00:25 → MEDS 05-15 17:52
PROVIDERS: Family Medicine; Internal Medicine; Student in an Organized Health Care Education/Training Program; ADMIT Internal Medicine
DX: N12 Tubulo-interstitial nephritis, not specified as acute or chronic (principal); I16.1 Hypertensive emergency; J96.11 Chronic respiratory failure with hypoxia; F13.20 Sedative, hypnotic or anxiolytic dependence, uncomplicated; I50.32 Chronic diastolic (congestive) heart failure; Z66 Do not resuscitate; B96.20 Unspecified Escherichia coli [E. coli] as the cause of diseases classified elsewhere; R07.89 Other chest pain; J44.9 Chronic obstructive pulmonary disease, unspecified; I12.9 Hypertensive chronic kidney disease with stage 1 through stage 4 chronic kidney disease, or unspecified chronic kidney disease; E11.22 Type 2 diabetes mellitus with diabetic chronic kidney disease; N18.32 Chronic kidney disease, stage 3b; E78.5 Hyperlipidemia, unspecified; F32.A Depression, unspecified; F10.10 Alcohol abuse, uncomplicated; F41.9 Anxiety disorder, unspecified; I65.29 Occlusion and stenosis of unspecified carotid artery; M19.90 Unspecified osteoarthritis, unspecified site; K59.00 Constipation, unspecified; G47.00 Insomnia, unspecified; J01.90 Acute sinusitis, unspecified; Z86.73 Personal history of transient ischemic attack (TIA), and cerebral infarction without residual deficits; Z91.048 Other nonmedicinal substance allergy status; Z79.899 Other long term (current) drug therapy; Z79.82 Long term (current) use of aspirin; Z79.51 Long term (current) use of inhaled steroids; Z99.81 Dependence on supplemental oxygen
CPT/HCPCS: 36415; 70551; 71045; 71260; 73030; 74177; 80048; 80053; 80400; 81001; 82533; 82947; 83690; 83880; 84484; 85025; 85651; 87077; 87086; 87186; 93005; 93010; 93306; 93880; 93975; 94640; 94664; 94762; 96365-59; 96375; 97116; 97161; 97165; 97168; 97530; 99285-25; A9270; J0295; J0360; J0696; J0834; J1171; J1650; J2270; J2405; J3010; J7050; Q9967